=== PATIENT | male | born 1965 | race Caucasian/White ===

== ENCOUNTER 2017-07-09 11:33 | Observation (INO) | payer BC ==
[~2017-07-09 11:33] MED LIST: SODIUM CHLORIDE 0.9% 1,000 ML BAG ONE
[2017-07-09] MEDS ORDERED: SODIUM CHLORIDE 0.9% 1,000 ML BAG ONE (12:31)
--- NOTE | 2017-07-09 12:43 | ED ---
General Adult HPI - General Stated complaint: SOB Time Seen by Provider: 07/09/17 12:12 Source: RN notes reviewed - History of Present Illness Initial comments: Patient is a 52-year-old male who presents to emergency room today with a chief complaint of some chest heaviness with heaviness to the left arm and shoulder. He does admit that this morning he had a very active morning at approximately 7: 30 AM there was a mouse's house and was running around trying to get it. He states that after this he noticed that he was having some heaviness sensation to the left arm and back of his shoulder. He states has not gone away. States it returns taking deep breath he noticed some pain. This does not feel like himself. He denies any other complaints or symptoms at this time. States never had similar symptoms. Patient denies any recent fever, chills, back pain, abdominal pain, nausea or vomiting, numbness or tingling, dysuria or hematuria, constipation or diarrhea, headaches or visual changes, or any other complaints. - Related Data Home Medications Medication Instructions Recorded Confirmed ALPRAZolam [Xanax] 0.5 mg PO TID PRN 07/09/17 07/09/17 Omeprazole [PriLOSEC] 20 mg PO AC-BRKFST 07/09/17 07/09/17 Allergies Allergy/AdvReac Type Severity Reaction Status Date / Time No Known Allergies Allergy Unverified 07/09/17 12:05 Review of Systems ROS Statement: Those systems with pertinent positive or pertinent negative responses have been documented in the HPI. ROS Other: All systems not noted in ROS Statement are negative. General Exam - General Exam Comments Initial Comments: General: The patient is awake and alert, in no distress, and does not appear acutely ill. Eye: Pupils are equal, round and reactive to light, extra-ocular movements are intact. No nystagmus. There is normal conjunctiva bilaterally. No signs of icterus. Ears, nose, mouth and throat: There are moist mucous membranes and no oral lesions. Neck: The neck is supple, there is no tenderness or JVD. Cardiovascular: There is a regular rate and rhythm. No murmur, rub or gallop is appreciated. Respiratory: Lungs are clear to auscultation, respirations are non-labored, breath sounds are equal. No wheezes, stridor, rales, or rhonchi. Gastrointestinal: Soft, non-distended, non-tender abdomen without masses or organomegaly noted. There is no rebound or guarding present. No CVA tenderness. Bowel sounds are unremarkable. Musculoskeletal: Normal ROM, no tenderness. Strength 5/5. Sensation intact. Pulses equal bilaterally 2+. Neurological: A&O x 3. CN II-XII intact, There are no obvious motor or sensory deficits. Coordination appears grossly intact. Speech is normal. Skin: Skin is warm and dry and no rashes or lesions are noted. Psychiatric: Cooperative, appropriate mood & affect, normal judgment. EKG Findings - EKG Comments: EKG Findings:: EKG performed at 1222: A 12-lead EKG was performed and interpreted by me as showing the following: Rate is 70, and rhythm is normal sinus. There are normal QRS complexes and normal R-wave progression. ST segments have no elevation or depression, and NM segments appear normal. Medical Decision Making - Medical Decision Making Patient's labs reviewed. Negative cardiac enzymes. Negative d-dimer. Patient improved after nitro tablet here in the emergency room. Patient will be admitted for repeat cardiac enzymes. Patient aware the plan states understanding. Patient discussed with attending physician Dr. Pereira. - Lab Data Result diagrams: 07/09/17 12:35 07/09/17 12:35 Lab Results 07/09/17 07/09/17 07/09/17 Range/Units 12:35 12:35 12:35 WBC 9.2 (3.8-10.6) k/uL RBC 6.66 H (4.30-5.90) m/uL Hgb 14.9 (13.0-17.5) gm/dL Hct 45.4 (39.0-53.0) % MCV 68.1 L (80.0-100.0) fL MCH 22.3 L (25.0-35.0) pg MCHC 32.8 (31.0-37.0) g/dL RDW 14.6 (11.5-15.5) % Plt Count 220 (150-450) k/uL Neutrophils % 56 % Lymphocytes % 22 % Monocytes % 7 % Eosinophils % 13 % Basophils % 1 % Neutrophils # 5.1 (1.3-7.7) k/uL Lymphocytes # 2.0 (1.0-4.8) k/uL Monocytes # 0.6 (0-1.0) k/uL Eosinophils # 1.2 H (0-0.7) k/uL Basophils # 0.1 (0-0.2) k/uL Microcytosis Marked PT (9.0-12.0) sec INR (<1.2) APTT (22.0-30.0) sec D-Dimer (<0.60) mg/L FEU Sodium 137 (137-145) mmol/L Potassium 4.2 (3.5-5.1) mmol/L Chloride 102 (98-107) mmol/L Carbon Dioxide 26 (22-30) mmol/L Anion Gap 9 mmol/L BUN 13 (9-20) mg/dL Creatinine 0.80 (0.66-1.25) mg/dL Est GFR (MDRD) Af Amer >60 (>60 ml/min/1.73 sqM) Est GFR (MDRD) Non-Af >60 (>60 ml/min/1.73 sqM) Glucose 108 H (74-99) mg/dL Calcium 9.3 (8.4-10.2) mg/dL Magnesium 1.9 (1.6-2.3) mg/dL Total Bilirubin 1.6 H (0.2-1.3) mg/dL GGT 34 (15-73) U/L AST 49 (17-59) U/L ALT 88 H (21-72) U/L Alkaline Phosphatase 70 (38-126) U/L Total Creatine Kinase 205 H (55-170) U/L CK-MB (CK-2) 1.5 (0.0-2.4) ng/mL CK-MB (CK-2) Rel Index 0.7 Troponin I <0.012 (0.000-0.034) ng/mL Total Protein 7.4 (6.3-8.2) g/dL Albumin 4.5 (3.5-5.0) g/dL Amylase 52 (30-110) U/L Lipase 71 (23-300) U/L 07/09/17 Range/Units 12:35 WBC (3.8-10.6) k/uL RBC (4.30-5.90) m/uL Hgb (13.0-17.5) gm/dL Hct (39.0-53.0) % MCV (80.0-100.0) fL MCH (25.0-35.0) pg MCHC (31.0-37.0) g/dL RDW (11.5-15.5) % Plt Count (150-450) k/uL Neutrophils % % Lymphocytes % % Monocytes % % Eosinophils % % Basophils % % Neutrophils # (1.3-7.7) k/uL Lymphocytes # (1.0-4.8) k/uL Monocytes # (0-1.0) k/uL Eosinophils # (0-0.7) k/uL Basophils # (0-0.2) k/uL Microcytosis PT 11.0 (9.0-12.0) sec INR 1.1 (<1.2) APTT 25.6 (22.0-30.0) sec D-Dimer 0.24 (<0.60) mg/L FEU Sodium (137-145) mmol/L Potassium (3.5-5.1) mmol/L Chloride (98-107) mmol/L Carbon Dioxide (22-30) mmol/L Anion Gap mmol/L BUN (9-20) mg/dL Creatinine (0.66-1.25) mg/dL Est GFR (MDRD) Af Amer (>60 ml/min/1.73 sqM) Est GFR (MDRD) Non-Af (>60 ml/min/1.73 sqM) Glucose (74-99) mg/dL Calcium (8.4-10.2) mg/dL Magnesium (1.6-2.3) mg/dL Total Bilirubin (0.2-1.3) mg/dL GGT (15-73) U/L AST (17-59) U/L ALT (21-72) U/L Alkaline Phosphatase (38-126) U/L Total Creatine Kinase (55-170) U/L CK-MB (CK-2) (0.0-2.4) ng/mL CK-MB (CK-2) Rel Index Troponin I (0.000-0.034) ng/mL Total Protein (6.3-8.2) g/dL Albumin (3.5-5.0) g/dL Amylase (30-110) U/L Lipase (23-300) U/L Disposition Clinical Impression: Chest pain Disposition: ADMITTED IP TO THIS HOSP Condition: Stable Referrals: Anusha Reno III, MD [Primary Care Provider] - 1-2 days Time of Disposition: 13:48
[2017-07-09 12:55] LABS: CHCM 32.5; HCT 45.4 % (39.0-53.0); HDW 2.65; HGB 14.9 gm/dL (13.0-17.5); MCH 22.3 pg (25.0-35.0); MCHC 32.8 g/dL (31.0-37.0); MCV 68.1 fL (80.0-100.0); RBC 6.66 m/uL (4.30-5.90); RDW 14.6 % (11.5-15.5); WBC 9.2 k/uL (3.8-10.6); WBC (Perox) 8.58
[2017-07-09 12:56] LABS: Basophils # (A) 0.1 k/uL (0-0.2); Basophils % (A) 1 %; Eosinophils # (A) 1.2 k/uL (0-0.7); Eosinophils % (A) 13 %; Luc # (Auto) 0.16; Luc % (Auto) 2; Lymphocytes % (A) 22 %; Mean Platelet Volume 6.5; Microcytosis Marked; Monocytes # (A) 0.6 k/uL (0-1.0); Monocytes % (A) 7 %; Neutrophils # (A) 5.1 k/uL (1.3-7.7); Neutrophils % (A) 56 %
[2017-07-09 12:57] LABS: ALT 88 U/L (21-72); AST 49 U/L (17-59); Alkaline Phosphatase 70 U/L (38-126); Amylase 52 U/L (30-110); Anion Gap 9 mmol/L; Blood Urea Nitrogen 13 mg/dL (9-20); Calcium 9.3 mg/dL (8.4-10.2); Carbon Dioxide 26 mmol/L (22-30); Chloride 102 mmol/L (98-107); GGT 34 U/L (15-73); Glucose 108 mg/dL (74-99); Magnesium 1.9 mg/dL (1.6-2.3); Non-African American GFR(MDRD) >60 (>60 ml/min/1.73 sqM); Potassium 4.2 mmol/L (3.5-5.1); Sodium 137 mmol/L (137-145); Total Bilirubin 1.6 mg/dL (0.2-1.3); Total Protein 7.4 g/dL (6.3-8.2)
[2017-07-09 13:00] LABS: INR 1.1 (<1.2); Partial Thromboplastin Time 25.6 sec (22.0-30.0)
[2017-07-09 13:14] LABS: Creatine Kinase 205 U/L (55-170)
[2017-07-09 13:28] LABS: Creatine Kinase MB 1.5 ng/mL (0.0-2.4); Troponin I <0.012 ng/mL (0.000-0.034)
[2017-07-09] MEDS ORDERED: HEPARIN SODIUM,PORCINE 5,000 UNIT/ML 1 ML VIAL IV ONE (13:48)
[2017-07-09] MEDS ORDERED: SODIUM CHLORIDE 0.9% 1,000 ML IV ONE (13:48)
[2017-07-09] MEDS ORDERED: NITROGLYCERIN SL TABS 0.4 MG TAB SUBLINGUAL PRN (13:48)
[2017-07-09] MEDS ORDERED: HEPARIN SODIUM,PORCINE/D5W PMX 25,000 UNIT in DEXTROSE/WATER 1 500ML.BAG IV SCH (14:00)
--- NOTE | 2017-07-09 14:27 | XR ---
EXAMINATION TYPE: TEMPORARY DATE OF EXAM: 07/09/2017 COMPARISON: NONE TECHNIQUE: PA and lateral views submitted. HISTORY: 10/25/2012 FINDINGS: The lungs are clear and there is no pneumothorax, pleural effusion, or focal pneumonia. Surgical cl ips in the right upper quadrant. Biapical pleural thickening. No overt failure. IMPRESSION: 1. No acute process.
[2017-07-09] MEDS ORDERED: ALPRAZolam 0.5 MG TAB PO PRN (16:01)
[2017-07-09 20:03] LABS: Creatine Kinase 166 U/L (55-170)
[2017-07-09 20:15] LABS: Creatine Kinase MB 1.2 ng/mL (0.0-2.4); Troponin I <0.012 ng/mL (0.000-0.034)
[2017-07-10 01:31] LABS: Creatine Kinase 161 U/L (55-170)
[2017-07-10 01:44] LABS: Creatine Kinase MB 1.1 ng/mL (0.0-2.4); Troponin I <0.012 ng/mL (0.000-0.034)
[2017-07-10 07:03] LABS: Anisocytosis Slight; Basophils # (A) 0.1 k/uL (0-0.2); Basophils % (A) 1 %; CH 22.7; CHCM 33.1; Eosinophils # (A) 1.8 k/uL (0-0.7); Eosinophils % (A) 18 %; HCT 47.6 % (39.0-53.0); HDW 2.79; HGB 15.3 gm/dL (13.0-17.5); Luc % (Auto) 3; Lymphocytes # (A) 3.4 k/uL (1.0-4.8); Lymphocytes % (A) 33 %; MCH 22.1 pg (25.0-35.0); MCHC 32.1 g/dL (31.0-37.0); Mean Platelet Volume 6.9; Microcytosis Marked; Monocytes # (A) 0.7 k/uL (0-1.0); Monocytes % (A) 7 %; Neutrophils # (A) 4.1 k/uL (1.3-7.7); Neutrophils % (A) 40 %; RDW 16.7 % (11.5-15.5); WBC 10.4 k/uL (3.8-10.6); WBC (Perox) 10.41
[2017-07-10 07:40] LABS: Anion Gap 9 mmol/L; Blood Urea Nitrogen 11 mg/dL (9-20); Calcium 8.9 mg/dL (8.4-10.2); Carbon Dioxide 29 mmol/L (22-30); Chloride 101 mmol/L (98-107); Cholesterol 150 mg/dL (<200); Glucose 88 mg/dL (74-99); HDL Cholesterol 35 mg/dL (40-60); Non-African American GFR(MDRD) >60 (>60 ml/min/1.73 sqM); Potassium 3.9 mmol/L (3.5-5.1); Sodium 139 mmol/L (137-145)
[2017-07-10] MEDS: ASPIRIN 325 MG TAB PO SCH (10:17)
[2017-07-10] MEDS: PANTOPRAZOLE 40 MG TABLET PO SCH (10:17)
[2017-07-10] MEDS ORDERED: ALPRAZolam 0.25 MG TAB PO PRN (10:35)
[2017-07-10] MEDS ORDERED: ASPIRIN 325 MG TAB PO STA (10:35)
[2017-07-10] MEDS ORDERED: NITROGLYCERIN SL TABS 0.4 MG TAB SUBLINGUAL PRN (10:35)
[2017-07-10] MEDS ORDERED: ALPRAZolam 0.5 MG TAB PO PRN (10:35)
[2017-07-10] MEDS ORDERED: SODIUM CHLORIDE 0.9% 1,000 ML in EMPTY BAG 1 BAG IV ONE (10:35)
[2017-07-10] MEDS ORDERED: ATORVASTATIN 80 MG TAB PO STA (10:35)
--- NOTE | 2017-07-10 11:27 | CONS ---
CONSULTATION A 52-year-old gentleman with a known history of borderline hypertension, anxiety, atypical chest pain who was seen by me 2 years ago and had a negative stress echo. Sees Dr. Reno on a regular basis. Was doing well until yesterday when he started chasing a mouse in the house and after he chased the mouse and caught it, he started having some tightness in the chest. The pain and the quality of his discomfort in the chest seems quite atypical. This resolved completely. He is resting without symptoms. His blood pressure is good. He has not had any troponin elevation. He is asymptomatic. However, there is an element of anxiety. He feels concerned because he also had some shortness of breath and broke into a mild sweat at that time. He is asymptomatic, his blood pressure control is optimal. Apparently since his last visit with me 2 years ago. He has been exercising regularly and modifying his lifestyle. He is asymptomatic at the time of my evaluation. PAST MEDICAL HISTORY: 1. Borderline hypertension, resolved with lifestyle changes. 2. Atypical chest pain. Negative stress echo about 2 years ago. 3. No evidence of any diabetes or myocardial infarction. MEDICATIONS: At home include omeprazole and Xanax. He does have an element of anxiety. ALLERGIES: None. REVIEW OF SYSTEMS: Remarkable with some exertional shortness of breath. He has no hematemesis or melena, genitourinary symptoms, fever with chills or cough or expectoration. PHYSICAL EXAMINATION: Blood pressure is 118/70, pulse rate is 68 per minute, regular. HEENT unremarkable. Fundus was not examined by me. Neck is supple. No JVD. I do not hear a carotid bruit. There is no thyromegaly. Heart exam reveals S1, S2 heard normally in all areas without a rub, murmur or gallop. Lungs are clear. Abdomen is soft, nontender. Lower extremities reveal normal pulses. No edema. Central nervous system is normal. EKG revealed a sinus mechanism. No acute changes. Borderline voltage criteria for LVH. This patient is status post cholecystectomy and arthroscopic surgery of his knee. IMPRESSION: 1. Atypical chest pain. 2. Anxiety. 3. Borderline hypertension. RECOMMENDATIONS: I will perform a regular stress test for this patient. Discontinue heparin, increase activity and if the regular stress test is normal, he can be discharged. I discussed my thoughts in detail with the patient. Thank you very much for the consult. MMODL / IJN: [id number] /
[2017-07-10] MEDS ORDERED: IV FLUID CONTINUATION 950 ML IV ONE (12:15)
[2017-07-10] MEDS ORDERED: VERAPAMIL 2.5 MG/ML 2 ML AMP ONE (12:18)
[2017-07-10] MEDS ORDERED: MIDAZOLAM 2 MG/2 ML VIAL ONE (12:18)
[2017-07-10] MEDS ORDERED: diphenhydrAMINE 50 MG/ML 1 ML VIAL ONE (12:26)
[2017-07-10] MEDS ORDERED: diphenhydrAMINE 50 MG/ML 1 ML VIAL IVP ONE (12:28)
[2017-07-10] MEDS ORDERED: MIDAZOLAM 2 MG/2 ML VIAL IVP ONE (12:28)
[2017-07-10] MEDS: LIDOCAINE 2% INJ 20 MG/ML SQ ONE ×2 (12:30→12:48)
[2017-07-10] MEDS: VERAPAMIL SYRINGE (5 MG/10 ML) INTRAARTER ONE ×2 (12:34→13:06)
[2017-07-10] MEDS ORDERED: HEPARIN SODIUM 1,000 UN/ML (10ML VL) IV ONE (12:36)
[2017-07-10] MEDS ORDERED: IOHEXOL 350 MG/ML (PER ML) 100ML BTL INJ ONE (13:06)
[2017-07-10] MEDS ORDERED: RX INFO: IV CONTRAST WAS GIVEN 1 EACH MISC MISCELLANE PRN (13:20)
[2017-07-10] MEDS ORDERED: SODIUM CHLORIDE 0.9% 1,000 ML IV SCH ×2 (13:30→18:45)
[2017-07-10] MEDS ORDERED: LOSARTAN 50 MG TAB PO SCH (14:00)
--- NOTE | 2017-07-10 14:34 | EST ---
EXERCISE STRESS AGE: 52 SEX: M HT: 70" WT: 224 PROTOCOL: Daniel Stress Exercise Test STAGE: IV DURATION OF EXERCISE: 11:00 HEART RATE REST: 68 BLOOD PRESSURE REST: 153/88 MAXIMUM HEART RATE ACHIEVED: 150 MAXIMUM BLOOD PRESSURE: 198/70 85% MPHR: 145 100% MPHR: 170 METS: 12.1 INDICATIONS: Chest pain. CLINICAL INFORMATION: Baseline EKG revealed normal sinus rhythm, with minor inferolateral nonspecific ST abnormality. Patient walked on a standard Daniel protocol for 11 minutes, achieved a maximal heart rate of 150 beats per minute which is more than 85% of predicted maximal. His maximal blood pressure was 198/70, he developed fatigue and shortness of breath but did not have angina. At peak exercise, ST-segment changes were much more prominent in making this a positive stress test by EKG criteria. However, patient has underlying hypertension and this could be related to hypertension as well. However, following the exercise, he developed extreme diaphoresis and had felt totally exhausted but did not complain of chest discomfort and his blood pressure came down rather quickly. EKG changes suggest myocardial ischemia at a fairly high exercise level. By EKG criteria, this is a positive stress test with good exercise capacity and significant diaphoresis after the stress test. In view of the abnormal stress test, I discussed with him the findings and advised coronary angiography. The rationale, risks, benefits, and options were explained to the patient and and I proceeded to perform coronary angiography in the same day. KADEN / SARAHI: [id number] /
--- NOTE | 2017-07-10 15:24 | P.DS ---
Providers Date of admission: 07/09/17 13:52 Attending physician: Bert Khan Consults: 07/09/17 13:48 Consult Physician Stat Consulting Provider: [facility] Consult Reason/Comments: chest pain Do you want consulting provider notified?: Yes Primary care physician: Anusha Reno [facility] Course: Please refer to HPI Patient Condition at Discharge: Stable Plan - Discharge Summary New Discharge Prescriptions: New Losartan [Cozaar] 50 mg PO DAILY #0 tab Continue ALPRAZolam [Xanax] 0.5 mg PO TID PRN PRN Reason: Anxiety Omeprazole [PriLOSEC] 20 mg PO AC-BRKFST Discharge Medication List ALPRAZolam [Xanax] 0.5 mg PO TID PRN 07/09/17 [History] Omeprazole [PriLOSEC] 20 mg PO AC-BRKFST 07/09/17 [History] Losartan [Cozaar] 50 mg PO DAILY #0 tab 07/10/17 [Rx] Follow up Appointment(s)/Referral(s): Aaron Kang MD [STAFF PHYSICIAN] - 07/16/17 8:45 am Anusha Reno III, MD [Primary Care Provider] - 1-2 days
--- NOTE | 2017-07-10 15:24 | P.HPIM ---
History of Present Illness Patient is a 52-year-old male came in with a chief complaint of some chest heaviness with heaviness to the left arm and shoulder. Patient chest pain is heaviness in the chest patient underwent the stress test which was suspicious for inducible ischemia for which patient underwent cardiac catheterization which did not show any significant coronary occlusion patient chest pain is not related to food, nonpleuritic in nature patient doesn't have any pneumonia patient denied any cough patient probably has musculoskeletal chest pain which resolved at this point of time patient chest pain lasted only for few minutes. Review of Systems REVIEW OF SYSTEMS: CONSTITUTIONAL: No fever, no malaise, no fatigue. HEENT: No recent visual problems or hearing problems. Denied any sore throat. CARDIOVASCULAR: No orthopnea, PND, no palpitations, no syncope. PULMONARY: No shortness of breath, no cough, no hemoptysis. GASTROINTESTINAL: No diarrhea, no nausea, no vomiting, no abdominal pain. Normoactive bowel sounds. NEUROLOGICAL: No headaches, no weakness, no numbness. HEMATOLOGICAL: Denies any bleeding or petechiae. GENITOURINARY: Denies any burning micturition, frequency, or urgency. MUSCULOSKELETAL/RHEUMATOLOGICAL: Denies any joint pain, swelling, or any muscle pain. ENDOCRINE: Denies any polyuria or polydipsia. The rest of the 14-point review of systems is negative. Past Medical History Additional Past Medical History / Comment(s): concussion age 19, took shots for asthma in past, pt had an egd in past "told he may have had sighns of an ulcer in past", anxiety takes xanax. History of Any Multi-Drug Resistant Organisms: None Reported Past Surgical History: Adenoidectomy, Cholecystectomy, Orthopedic Surgery, Tonsillectomy Additional Past Surgical History / Comment(s): egg, colonoscopy/polypectomy- benign.lt knee arthroscopy and repair of ligament. had a 2nd sx for meniscus repair. deviated septum repair. Past Anesthesia/Blood Transfusion Reactions: No Reported Reaction Smoking Status: Never smoker - Past Family History Father Family Medical History: Liver Disease Additional Family Medical History / Comment(s): non alcoholic cirrhosis Mother Family Medical History: Asthma Additional Family Medical History / Comment(s): chronic bronchitis Son(s) Family Medical History: Cancer Additional Family Medical History / Comment(s): osteosarcoma Medications and Allergies Home Medications Medication Instructions Recorded Confirmed Type ALPRAZolam [Xanax] 0.5 mg PO TID PRN 07/09/17 07/09/17 History Omeprazole [PriLOSEC] 20 mg PO AC-BRKFST 07/09/17 07/09/17 History Losartan [Cozaar] 50 mg PO DAILY #0 tab 07/10/17 Rx Allergies Allergy/AdvReac Type Severity Reaction Status Date / Time No Known Allergies Allergy Unverified 07/09/17 12:05 Physical Exam Vitals: Vital Signs Temp Pulse Pulse Resp BP BP Pulse Ox 07/10/17 13:25 97.8 F 74 16 128/71 94 L 07/10/17 11:30 98.1 F 86 18 122/79 95 07/10/17 08:00 61 18 07/10/17 07:35 97.5 F L 61 18 112/74 94 L 07/10/17 03:44 98.5 F 72 16 136/88 96 07/10/17 03:02 61 16 07/09/17 23:24 98.1 F 77 16 118/77 94 L 07/09/17 23:19 73 16 07/09/17 20:00 98.1 F 83 16 143/76 96 Intake and Output 07/10/17 07/10/17 07/10/17 06:59 14:59 22:59 Intake Total 150 Balance 150 Intake: IV 150 Other: Voiding Method Toilet Weight 101.605 kg Patient Weight 07/11/17 06:59 Weight 101.605 kg PHYSICAL EXAMINATION: GENERAL: The patient is alert and oriented x3, not in any acute distress. Well developed, well nourished. HEENT: Pupils are round and equally reacting to light. EOMI. No scleral icterus. No conjunctival pallor. Normocephalic, atraumatic. No pharyngeal erythema. No thyromegaly. CARDIOVASCULAR: S1 and S2 present. No murmurs, rubs, or gallops. PULMONARY: Chest is clear to auscultation, no wheezing or crackles. ABDOMEN: Soft, nontender, nondistended, normoactive bowel sounds. No palpable organomegaly. MUSCULOSKELETAL: No joint swelling or deformity. EXTREMITIES: No cyanosis, clubbing, or pedal edema. NEUROLOGICAL: Gross neurological examination did not reveal any focal deficits. SKIN: No rashes. Results CBC & Chem 7: 07/10/17 06:31 07/10/17 06:31 Labs: Abnormal Lab Results - Last 24 Hours (Table) 07/09/17 07/10/17 07/10/17 Range/Units 19:29 00:55 06:31 RBC (4.30-5.90) m/uL MCV (80.0-100.0) fL MCH (25.0-35.0) pg RDW (11.5-15.5) % Eosinophils # (0-0.7) k/uL APTT 39.6 H 51.8 H (22.0-30.0) sec HDL Cholesterol 35 L (40-60) mg/dL 07/10/17 Range/Units 06:31 RBC 6.90 H (4.30-5.90) m/uL MCV 69.0 L (80.0-100.0) fL MCH 22.1 L (25.0-35.0) pg RDW 16.7 H (11.5-15.5) % Eosinophils # 1.8 H (0-0.7) k/uL APTT (22.0-30.0) sec HDL Cholesterol (40-60) mg/dL Thrombosis Risk Factor Assmnt - Choose All That Apply Any of the Below Risk Factors Present?: Yes Each Factor Represents 1 point: Age 41-60 years, Obesity (BMI >25) Other Risk Factors: No Other congenital or acquired thrombophilia - If yes, enter type in comment: No Thrombosis Risk Factor Assessment Total Risk Factor Score: 2 Thrombosis Risk Factor Assessment Level: Low Risk Assessment and Plan Plan: #1 chest pain: Rule out acute coronary syndromes, patient is status post cardiac catheterization which showed clean coronaries. Chest pain is probably musculoskeletal in nature. #2 gastroesophageal reflux disease history for which patient takes Prilosec which will be continued #3 hypertension continue with losartan at home. Patient will be discharged today
[2017-07-10 16:44] LABS: Glucose,Whole Blood 104 mg/dL (75-99)
[2017-07-10 17:22] LABS: Basophils # (A) 0.1 k/uL (0-0.2); Basophils % (A) 1 %; CH 21.8; CHCM 32.1; Eosinophils # (A) 0.8 k/uL (0-0.7); Eosinophils % (A) 9 %; HCT 45.1 % (39.0-53.0); HDW 2.64; HGB 14.8 gm/dL (13.0-17.5); Luc # (Auto) 0.15; Luc % (Auto) 2; Lymphocytes # (A) 1.7 k/uL (1.0-4.8); Lymphocytes % (A) 18 %; MCH 22.3 pg (25.0-35.0); MCHC 32.7 g/dL (31.0-37.0); MCV 68.3 fL (80.0-100.0); Mean Platelet Volume 6.3; Microcytosis Marked; Monocytes # (A) 0.6 k/uL (0-1.0); Monocytes % (A) 6 %; Neutrophils # (A) 6.3 k/uL (1.3-7.7); Neutrophils % (A) 65 %; RBC 6.61 m/uL (4.30-5.90); RDW 14.8 % (11.5-15.5); WBC 9.6 k/uL (3.8-10.6)
[2017-07-10] MEDS ORDERED: MELATONIN 5 MG TABLET PO PRN (20:52)
[2017-07-10] MEDS ORDERED: ACETAMINOPHEN TAB 325 MG TAB PO PRN (20:52)
--- NOTE | 2017-07-10 22:10 | PN ---
PROGRESS NOTE Mr. Ramon, following the cardiac cath, developed an episode of vasovagal reaction, developed diaphoresis, hypotension. Pressure was in the 70s. I gave him IV fluids and he was placed in the Trendelenburg position. With this, he improved remarkably. I came in and saw the patient in the evening. His hemoglobin was normal. There was no evidence of any bleeding. He stabilized very quickly. Probably manipulation of the ( ) in the right radial cath site or some groin manipulation seemed to have caused some pain and precipitated the vasovagal reaction. Patient received 50 mg of losartan as well. However, he has stabilized and is doing well. I came in and saw both the patient and his . Blood pressure was 110/70, pulse rate about 70 per minute. S1,S2 heard normally. Lungs are clear. Abdomen and lower extremity exam was unchanged. I reassured the patient, but we will keep him overnight, continue to hydrate him gradually, and I will see him in the morning prior to discharge. Discussed my thoughts in detail with the patient. MMODL / IJN: [id number] /
--- NOTE | 2017-07-11 00:01 | CC ---
CARDIAC CATHETERIZATION REPORT DATE OF SERVICE: 07/10/2017 PROCEDURE: Left heart catheterization, coronary angiography and left ventriculography. PERFORMED BY: Dr. Manolo Kang. CLINICAL INFORMATION: Mr. Addison Ramon is a 52-year-old gentleman with a history of borderline hypertension. He came into the hospital with an episode of chest tightness, pressure and normal troponin. He walked on a standard Daniel protocol for about 11 minutes but developed inferolateral ST-segment depression, then had a significant episode of diaphoresis and hypotension. The EKG changes became more pronounced. The patient was advised to have coronary angiography, given the positive stress test at a high exercise level with symptoms of diaphoresis and generalized weakness and relative hypotension. Risks, benefits and options were explained to the patient, and procedure was performed on the same day. PROCEDURE NOTE: Under local anesthesia and strict aseptic precautions, a 6 Pakistani introducer was placed in the right radial artery. I advanced a Glidewire and Ultimate 1 catheter. With this I noted that there was extreme tortuosity with almost a U-shaped curve from the subclavian and the aortic arch to gain access into the ascending aorta. Because of extreme tortuosity, I felt it would not be prudent to pursue the cath, and therefore I switched over to the right femoral approach. Using standard Mitchell catheters from the right femoral approach, a 6 Pakistani introducer was placed. Using standard Mitchell catheters, I performed coronary angiography. I used a pigtail catheter to perform LV gram after checking the LV pressures. The patient tolerated the procedure well without complication. The femoral arterial sheath was taken out and an Angio-Seal device used to secure hemostasis. The right radial catheterization site was addressed by applying a tracelet, and good hemostasis was secured. Saturation of the fingers of the right hand was 95%. The right groin hemostasis was secure. The right radial site hemostasis was secure. Patient tolerated the procedure well without complication. Findings were reviewed with the patient and his . He was sent to the room in stable condition. CARDIAC CATHETERIZATION FINDINGS: The left ventricular end-diastolic pressure was about 10 mmHg, and there was no gradient across the aortic valve. CORONARY ANGIOGRAPHY FINDINGS: RIGHT CORONARY ARTERY: Technically dominant vessel. Has no significant disease. Minor irregularities. Distally bifurcates into PDA and PLV. PLV is large and PDA is small, has minor irregularities. No significant disease in the dominant RCA. LEFT MAIN CORONARY ARTERY: Long patent vessel has some ostial narrowing of the left main of about maybe 10% also; however, there is no significant disease, and the left main bifurcates into LAD and circumflex. LEFT ANTERIOR DESCENDING CORONARY ARTERY: Good-caliber vessel. Extends along the anterior wall, gives off 2 good-sized diagonal branches, then a septal branch, and then runs towards the apex, and in the midportion gives off another diagonal branch. The LAD and the diagonals are free of significant disease. LEFT POSTERIOR CIRCUMFLEX CORONARY ARTERY: Nondominant vessel. Fair caliber. Fair distribution. Minor irregularities. No significant disease. LEFT VENTRICULOGRAM: This was performed in 30-degree LAWRENCE projection and revealed that the left ventricle is of normal size with good systolic function without segmental wall motion abnormality. Ejection fraction 60% by visual inspection. FINAL IMPRESSION: This patient has no significant obstructive coronary artery disease. He has a right- dominant system, normal filling pressures and normal systolic function. Findings were discussed with the patient and his . RECOMMENDATIONS: Aggressive medical therapy with risk factor modification, including lipid-lowering agents and also a small dose of antihypertensive was advised. Patient will be discharged later on today or tomorrow if he remains stable. Moderate conscious sedation was provided for a total duration of 45 minutes. MMODL / IJN: [id number] /
--- NOTE | 2017-07-11 07:46 | CONS ---
CONSULTATION Mr. Ramon is a gentleman who had a vasovagal episode yesterday. He is doing remarkably well. Has no further symptoms. Blood pressure is good. There are no orthostatic changes. His blood pressure is 130/70, pulse rate 70 per minute. S1 and S2 heard normally. Lungs are clear. Abdomen and lower extremity exam unchanged. The right radial cath site and the right femoral cath site are clean and dry. Plan is to increase activity, discharge him and I will see him in the office next Saturday. Discharge instructions were given and not to do any strenuous activity but he can resume walking after 48 hours. MMODL / IJN: [id number] /
[2017-07-11] MEDS: PANTOPRAZOLE 40 MG TABLET PO SCH (08:09)
[2017-07-11] MEDS: ASPIRIN 325 MG TAB PO SCH (08:09)
[2017-07-11 11:47] VITALS: BP 120/67; PULSE 78; RESP 16; TEMP 98.1
--- NOTE | 2017-07-11 13:45 | P.DS ---
Providers Date of admission: 07/09/17 13:52 Attending physician: Bert Khan Consults: 07/09/17 13:48 Consult Physician Stat Consulting Provider: [facility] Consult Reason/Comments: chest pain Do you want consulting provider notified?: Yes Primary care physician: Anusha Reno [facility] Course: Patient was admitted for chest pain and underwent cardia catheterization which did not show any significant coronary atherosclerotic vascular disease is being discharged today. Patient Condition at Discharge: Stable Plan - Discharge Summary New Discharge Prescriptions: Continue ALPRAZolam [Xanax] 0.5 mg PO TID PRN PRN Reason: Anxiety Omeprazole [PriLOSEC] 20 mg PO AC-BRKFST Discharge Medication List ALPRAZolam [Xanax] 0.5 mg PO TID PRN 07/09/17 [History] Omeprazole [PriLOSEC] 20 mg PO AC-BRKFST 07/09/17 [History] Follow up Appointment(s)/Referral(s): Aaron Kang MD [STAFF PHYSICIAN] - 07/16/17 8:45 am Anusha Reno III, MD [Primary Care Provider] - 1-2 days Patient Instructions/Handouts: Chest Pain (DC) Activity/Diet/Wound Care/Special Instructions: See Restriction Sheet
== END 2017-07-11 13:39 | disposition home or self-care (01) ==
LOC: EC 11:33 → 3OBS 13:52
PROVIDERS: ADMIT Hospitalist; ATTEND Hospitalist
DX: R07.89 Other chest pain (principal); Z79.899 Other long term (current) drug therapy; K21.9 Gastro-esophageal reflux disease without esophagitis; I10 Essential (primary) hypertension; J45.909 Unspecified asthma, uncomplicated; F41.9 Anxiety disorder, unspecified; Z90.49 Acquired absence of other specified parts of digestive tract; Z82.5 Family history of asthma and other chronic lower respiratory diseases; E66.9 Obesity, unspecified; Z68.32 Body mass index [BMI] 32.0-32.9, adult; R55 Syncope and collapse; R61 Generalized hyperhidrosis; I95.9 Hypotension, unspecified
CPT/HCPCS: 99152; 99153; 96361; 96366 ×2; 96365; 99285; 36415; 93005; 93017; 93458; 85379; 80061; 80053; 80048; 82150; 82550 ×2; 82553 ×2; 82977; 83690; 83735; 84484 ×2; 85025 ×2; 85610; 85730 ×2; 71020; G0378 ×3; C1760; C1769 ×5; C1894 ×2; J2001; J2250; J1200; Q9967; J1644 ×2

== ENCOUNTER → 2019-07-30 | Outpatient (CLI) | payer BC ==
--- NOTE | 2019-07-30 07:47 | US ---
EXAMINATION TYPE: US abdomen complete DATE OF EXAM: 07/30/2019 COMPARISON: None CLINICAL HISTORY: R10.9 unspecified abdominal pain. Epigastric pain, gassy and bloating EXAM MEASUREMENTS: Liver Length: 15.5 cm Gallbladder Wall: Surgically absent CBD: 0.5 cm Spleen: 14.9 cm Right Kidney: 12.4 x 6.3 x 6.1 cm Left Kidney: 12.8 x 4.8 x 7.1 cm Technically difficult study due to extensive midline bowel gas. Pancreas: Obscured by bowel gas Liver: difficult to penetrate, loss of vascular landmarks. Echogenic as compared to kidney. These fi ndings most commonly related to hepatic steatosis and limiting evaluation for hepatic masses. Gallbladder: Surgically absent CBD: wnl Spleen: measures 14.9 cm Right Kidney: No hydronephrosis or masses seen Left Kidney: No hydronephrosis or masses seen Upper IVC: not seen Abd Aorta: not seen proximally, otherwise wnl. The intrahepatic portion of the IVC and proximal abdominal aorta are within normal limits. Common devonte e duct is unremarkable. The visualized portions of the pancreas are homogenous. The spleen is unrem arkable. Kidneys are symmetric and free of hydronephrosis. No renal lesions are seen. IMPRESSION: 1. Sonographic findings most commonly related to hepatic steatosis. This appears overall moderate in degree. Correlate with liver function tests. Liver is severely limited for evaluation of masses. 2. Incidentally noted splenomegaly. 3. Obscuration of the pancreas by overlying bowel gas.
== END | disposition home or self-care (01) ==
LOC: RADUSWWP 06:50
PROVIDERS: ATTEND Family Medicine
DX: R10.9 Unspecified abdominal pain (principal); R19.00 Intra-abdominal and pelvic swelling, mass and lump, unspecified site
CPT/HCPCS: 76700

== ENCOUNTER 2019-11-13 05:51 | Observation (INO) | payer BC ==
[2019-11-13] MEDS ORDERED: ASPIRIN 81 MG PO STA (06:19)
[2019-11-13] MEDS ORDERED: KETOROLAC 30 MG/ML 1 ML VIAL IVP STA (06:49)
--- NOTE | 2019-11-13 07:01 | ED ---
General Adult HPI - General Chief complaint: Shortness of Breath Stated complaint: Diff Breathing Time Seen by Provider: 11/13/19 06:00 Source: patient, RN notes reviewed Mode of arrival: ambulatory Limitations: no limitations - History of Present Illness Initial comments: This a 54-year-old male presents emergency Department chief complaint of shortness of breath, left shoulder pain. Patient states that he woke up states that he felt very winded states that he cannot walk up stairs. Patient states he has had some pain in his left posterior shoulder region left arm, left upper chest tightness. Patient does admit that he had an episode similar to this a few weeks ago. He is mentally child a lot but has no history of PE or DVT. No significant cardiac history states that he had cardiac cath 3 years ago with no significant findings. Patient denies any current nausea vomiting no recent URI symptoms. - Related Data Home Medications Medication Instructions Recorded Confirmed ALPRAZolam [Xanax] 0.25 mg PO Q8HR PRN 11/13/19 11/13/19 Aspirin EC [Ecotrin Low Dose] 81 mg PO DAILY 11/13/19 11/13/19 L.acidoph,Paracasei, B.lactis 1 cap PO DAILY 11/13/19 11/13/19 [Probiotic] Multivitamins, Thera [Multivitamin 1 tab PO DAILY 11/13/19 11/13/19 (formulary)] Omeprazole Magnesium [PriLOSEC OTC] 20 mg PO DAILY 11/13/19 11/13/19 Allergies Allergy/AdvReac Type Severity Reaction Status Date / Time No Known Allergies Allergy Verified 11/13/19 07:34 Review of Systems ROS Statement: Those systems with pertinent positive or pertinent negative responses have been documented in the HPI. ROS Other: All systems not noted in ROS Statement are negative. Past Medical History Additional Past Medical History / Comment(s): concussion age 19, took shots for asthma in past, pt had an egd in past "told he may have had sighns of an ulcer in past", anxiety takes xanax. History of Any Multi-Drug Resistant Organisms: None Reported Past Surgical History: Adenoidectomy, Cholecystectomy, Orthopedic Surgery, Tonsillectomy Additional Past Surgical History / Comment(s): egg, colonoscopy/polypectomy- benign.lt knee arthroscopy and repair of ligament. had a 2nd sx for meniscus repair. deviated septum repair. Past Anesthesia/Blood Transfusion Reactions: No Reported Reaction Past Psychological History: Anxiety Smoking Status: Never smoker Past Alcohol Use History: Occasional Past Drug Use History: None Reported - Past Family History Father Family Medical History: Liver Disease Additional Family Medical History / Comment(s): non alcoholic cirrhosis Mother Family Medical History: Asthma Additional Family Medical History / Comment(s): chronic bronchitis Son(s) Family Medical History: Cancer Additional Family Medical History / Comment(s): osteosarcoma General Exam Limitations: no limitations General appearance: alert, in no apparent distress Head exam: Present: atraumatic, normocephalic, normal inspection Eye exam: Present: normal appearance, PERRL, EOMI. Absent: scleral icterus, conjunctival injection, periorbital swelling ENT exam: Present: normal exam, normal oropharynx, mucous membranes moist Neck exam: Present: normal inspection, full ROM. Absent: tenderness, meningismus, lymphadenopathy Respiratory exam: Present: normal lung sounds bilaterally. Absent: respiratory distress, wheezes, rales, rhonchi, stridor Cardiovascular Exam: Present: regular rate, normal rhythm, normal heart sounds. Absent: systolic murmur, diastolic murmur, rubs, gallop, clicks GI/Abdominal exam: Present: soft, normal bowel sounds. Absent: distended, tenderness, guarding, rebound, rigid Extremities exam: Present: other (Extremity pulses equal bilaterally +2). Absent: pedal edema, calf tenderness Neurological exam: Present: alert, oriented X3, CN II-XII intact Skin exam: Present: warm, dry, intact, normal color. Absent: rash Course Vital Signs 11/13/19 11/13/19 05:56 07:30 Temperature 98.1 F Pulse Rate 85 78 Respiratory 18 16 Rate Blood Pressure 148/89 121/74 O2 Sat by Pulse 99 99 Oximetry EKG Findings - EKG Comments: EKG Findings:: EKG 4 to 03/31/1942 normal sinus rhythm rate of 80 VT 158 QRS 86 QTC is QTC 382/440 Medical Decision Making - Medical Decision Making Patient will be admitted for exertional dyspnea, chest pain at this time workup initially is negative. Patient will be consult to cardiology. - Lab Data Result diagrams: 11/13/19 06:50 11/13/19 06:50 Lab Results 01/11/13/19 11/13/19 Range/Units 06:50 06:50 06:50 WBC 10.7 H (3.8-10.6) k/uL RBC 6.89 H (4.30-5.90) m/uL Hgb 15.1 (13.0-17.5) gm/dL Hct 47.1 (39.0-53.0) % MCV 68.3 L (80.0-100.0) fL MCH 22.0 L (25.0-35.0) pg MCHC 32.2 (31.0-37.0) g/dL RDW 14.7 (11.5-15.5) % Plt Count 201 (150-450) k/uL Neutrophils % (Manual) 48 % Lymphocytes % (Manual) 28 % Monocytes % (Manual) 7 % Eosinophils % (Manual) 17 % Neutrophils # (Manual) 5.14 (1.3-7.7) k/uL Lymphocytes # (Manual) 3.00 (1.0-4.8) k/uL Monocytes # (Manual) 0.75 (0-1.0) k/uL Eosinophils # (Manual) 1.82 H (0-0.7) k/uL Nucleated RBCs 0 (0-0) /100 WBC Manual Slide Review Performed Microcytosis Marked PT 10.4 (9.0-12.0) sec INR 1.0 (<1.2) APTT 25.8 (22.0-30.0) sec D-Dimer 0.19 (<0.60) mg/L FEU Sodium 140 (137-145) mmol/L Potassium 4.1 (3.5-5.1) mmol/L Chloride 103 (98-107) mmol/L Carbon Dioxide 26 (22-30) mmol/L Anion Gap 11 mmol/L BUN 14 (9-20) mg/dL Creatinine 0.84 (0.66-1.25) mg/dL Est GFR (CKD-EPI)AfAm >90 (>60 ml/min/1.73 sqM) Est GFR (CKD-EPI)NonAf >90 (>60 ml/min/1.73 sqM) Glucose 111 H (74-99) mg/dL Calcium 9.5 (8.4-10.2) mg/dL Magnesium 1.9 (1.6-2.3) mg/dL Total Bilirubin 1.6 H (0.2-1.3) mg/dL AST 48 (17-59) U/L ALT 78 H (4-49) U/L Alkaline Phosphatase 75 (38-126) U/L Troponin I (0.000-0.034) ng/mL NT-Pro-B Natriuret Pep pg/mL Total Protein 7.8 (6.3-8.2) g/dL Albumin 4.5 (3.5-5.0) g/dL Lipase 137 (23-300) U/L 11/13/19 11/13/19 Range/Units 06:50 06:50 WBC (3.8-10.6) k/uL RBC (4.30-5.90) m/uL Hgb (13.0-17.5) gm/dL Hct (39.0-53.0) % MCV (80.0-100.0) fL MCH (25.0-35.0) pg MCHC (31.0-37.0) g/dL RDW (11.5-15.5) % Plt Count (150-450) k/uL Neutrophils % (Manual) % Lymphocytes % (Manual) % Monocytes % (Manual) % Eosinophils % (Manual) % Neutrophils # (Manual) (1.3-7.7) k/uL Lymphocytes # (Manual) (1.0-4.8) k/uL Monocytes # (Manual) (0-1.0) k/uL Eosinophils # (Manual) (0-0.7) k/uL Nucleated RBCs (0-0) /100 WBC Manual Slide Review Microcytosis PT (9.0-12.0) sec INR (<1.2) APTT (22.0-30.0) sec D-Dimer (<0.60) mg/L FEU Sodium (137-145) mmol/L Potassium (3.5-5.1) mmol/L Chloride (98-107) mmol/L Carbon Dioxide (22-30) mmol/L Anion Gap mmol/L BUN (9-20) mg/dL Creatinine (0.66-1.25) mg/dL Est GFR (CKD-EPI)AfAm (>60 ml/min/1.73 sqM) Est GFR (CKD-EPI)NonAf (>60 ml/min/1.73 sqM) Glucose (74-99) mg/dL Calcium (8.4-10.2) mg/dL Magnesium (1.6-2.3) mg/dL Total Bilirubin (0.2-1.3) mg/dL AST (17-59) U/L ALT (4-49) U/L Alkaline Phosphatase (38-126) U/L Troponin I <0.012 (0.000-0.034) ng/mL NT-Pro-B Natriuret Pep 23 pg/mL Total Protein (6.3-8.2) g/dL Albumin (3.5-5.0) g/dL Lipase (23-300) U/L Disposition Clinical Impression: Exertional dyspnea, Chest pain Disposition: ADMITTED IP TO THIS HOSP Condition: Fair Referrals: Anusha Reno III, MD [Primary Care Provider] - 1-2 days
[2019-11-13 07:10] LABS: ALT 78 U/L (4-49); AST 48 U/L (17-59); African American GFR (CKD) >90 (>60 ml/min/1.73 sqM); Albumin 4.5 g/dL (3.5-5.0); Alkaline Phosphatase 75 U/L (38-126); Anion Gap 11 mmol/L; Blood Urea Nitrogen 14 mg/dL (9-20); Calcium 9.5 mg/dL (8.4-10.2); Carbon Dioxide 26 mmol/L (22-30); Chloride 103 mmol/L (98-107); Glucose 111 mg/dL (74-99); Magnesium 1.9 mg/dL (1.6-2.3); Non-African American GFR(CKD) >90 (>60 ml/min/1.73 sqM); Potassium 4.1 mmol/L (3.5-5.1); Sodium 140 mmol/L (137-145); Total Bilirubin 1.6 mg/dL (0.2-1.3); Total Protein 7.8 g/dL (6.3-8.2)
[2019-11-13 07:15] LABS: D-Dimer 0.19 mg/L FEU (<0.60); Partial Thromboplastin Time 25.8 sec (22.0-30.0); Prothrombin Time 10.4 sec (9.0-12.0)
[2019-11-13 07:16] LABS: HCT 47.1 % (39.0-53.0); HGB 15.1 gm/dL (13.0-17.5); MCHC 32.2 g/dL (31.0-37.0); MCV 68.3 fL (80.0-100.0); Mean Platelet Volume 6.8; Microcytosis Marked; Platelet Count 201 k/uL (150-450); RBC 6.89 m/uL (4.30-5.90); RDW 14.7 % (11.5-15.5); WBC 10.7 k/uL (3.8-10.6)
--- NOTE | 2019-11-13 07:17 | XR ---
EXAMINATION TYPE: XR chest 2V DATE OF EXAM: 11/13/2019 COMPARISON: 07/09/2017 HISTORY: Chest pain TECHNIQUE: Frontal and lateral views of the chest are obtained. FINDINGS: There is no focal air space opacity, pleural effusion, or pneumothorax seen. The cardiac silhouette size is mildly enlarged. The osseous structures are intact. Cholecystectomy clips are se en. IMPRESSION: No acute cardiopulmonary process.
[2019-11-13 07:47] LABS: Eosinophils # (M) 1.82 k/uL (0-0.7); Monocytes # (M) 0.75 k/uL (0-1.0); Neutrophils # (M) 5.14 k/uL (1.3-7.7); Neutrophils % (M) 48 %; Nucleated Red Blood Cells 0 /100 WBC (0-0); Total Cells Counted 100
[2019-11-13] MEDS ORDERED: HEPARIN SODIUM,PORCINE 5,000 UNIT/ML 1 ML VIAL IV ONE (08:39)
[2019-11-13] MEDS ORDERED: HEPARIN SODIUM,PORCINE 5,000 UNIT/ML 1 ML VIAL IV PRN (08:39)
[2019-11-13] MEDS ORDERED: NITROGLYCERIN SL TABS 0.4 MG TAB SUBLINGUAL PRN (08:39)
[2019-11-13] MEDS ORDERED: HEPARIN SOD,PORK IN 0.45% NACL 25,000 UNIT in 0.45% NACL 1 250ML.BAG IV SCH (08:45)
[2019-11-13 09:51] VITALS: RESP 18
[2019-11-13] MEDS ORDERED: INFLUENZA VACCINE (6 MOS+) 60 MCG/0.5 ML SYRINGE IM ONE (10:53)
[2019-11-13] MEDS ORDERED: ALPRAZolam 0.25 MG TAB PO PRN (11:16)
--- NOTE | 2019-11-13 11:32 | CONS ---
CONSULTATION Mr. Ramon is a 54-year-old gentleman who came to the emergency room with a complaint of shortness of breath. The patient gives a history that he woke up this morning and he felt winded. He says he could not go up the stairs. The patient took Xanax with some relief of the pain. He continued to feel short of breath. He came over here. He denied any pleuritic chest pain. Denies any cough with expectoration. Patient denies any past history of PE or DVT. The patient was evaluated in the emergency room. BNP level, initial troponin, EKG, and D-dimer test were normal. This patient had a previous cardiac catheterization about 3 years ago, which was normal. He was recently evaluated by stress test in the office about 3 months ago, which was normal. The patient denies any exertional chest discomfort. HOME MEDICATIONS: Home medications include Xanax, probiotic, omeprazole. PAST MEDICAL HISTORY: Past medical history includes the patient had a concussion at the age of 19, history of cholecystectomy, orthopedic surgery, tonsillectomy, left knee arthroscopy and repair of the ligament. PHYSICAL EXAMINATION: This patient's vital signs were stable in the emergency room. Oxygen saturation was 99% on room air. HEAD/ENT examination is negative. Neck is supple. There is no increase in jugular venous pressure. Both the carotid pulses are felt. There is no bruit. Chest is symmetrical. HEART: The PMI is not felt. First and second heart sounds are normal. There is no evidence of any murmur. Lungs are clinically clear to auscultation and percussion. Abdomen is negative. EXTREMITIES: Peripheral pulsations are 2+. Patient's first troponin is normal. Patient's hemoglobin is 15.1. The patient's MCV and MCH are significantly low with normal hemoglobin and an RBC count suggestive of thalassemia minor. The patient's D-dimer test was normal and first troponin is normal. BNP level is 23. IMPRESSION AND PLAN: 1. Shortness of breath, exact etiology undetermined. There is no evidence of any congestive cardiac failure. First troponin is normal. This patient's recent stress test was normal. We will repeat the troponin. If that is normal, patient can be discharged home. 2. Possible thalassemia minor. We will order hemoglobin electrophoresis. MMODL / IJN: [id number] /
--- NOTE | 2019-11-13 12:00 | ECHOF ---
Referral Reason:Chest pain, exertional dyspnea MEASUREMENTS -------- HEIGHT: 177.8 cm WEIGHT: 102.1 kg BP: 121/74 RVIDd: 2.9 cm (< 3.3) IVSd: 1.1 cm (0.6 - 1.1) LVIDd: 4.6 cm (3.9 - 5.3) LVPWd: 1.1 cm (0.6 - 1.1) IVSs: 1.7 cm LVIDs: 2.8 cm LVPWs: 1.8 cm LA Diam: 3.6 cm (2.7 - 3.8) LAESV Index (A-L): 19.32 ml/m Ao Diam: 3.4 cm (2.0 - 3.7) AV Cusp: 2.3 cm (1.5 - 2.6) MV EXCURSION: 21.694 mm (> 18.000) MV EF SLOPE: 131 mm/s (70 - 150) EPSS: 0.7 cm MV E Yuan: 0.68 m/s MV DecT: 194 ms MV A Yuan: 0.61 m/s MV E/A Ratio: 1.12 TAPSE: 18.38 mm FINDINGS -------- Sinus rhythm. This was a technically good study. The left ventricular size is normal. There is borderline concentric left ventricular hypertrophy. Overall left ventricular systolic function is normal with, an EF between 60 - 65 %. The right ventricle is normal in size. Normal LA size by volume 22+/-6 ml/m2. The right atrium is normal in size. Interatrial and interventricular septum intact. The aortic valve is trileaflet and appears structurally normal. The mitral valve is normal. The tricuspid valve appears structurally normal. There is no pulmonic regurgitation present. The aortic root size is normal. IVC Not well visulized. There is no pericardial effusion. CONCLUSIONS -------- 1. Sinus rhythm. 2. This was a technically good study. 3. The left ventricular size is normal. 4. There is borderline concentric left ventricular hypertrophy. 5. Overall left ventricular systolic function is normal with, an EF between 60 - 65 %. 6. The right ventricle is normal in size. 7. Normal LA size by volume 22+/-6 ml/m2. 8. The right atrium is normal in size. 9. Interatrial and interventricular septum intact. 10. The aortic valve is trileaflet and appears structurally normal. 11. The mitral valve is normal. 12. The tricuspid valve appears structurally normal. 13. There is no pulmonic regurgitation present. 14. The aortic root size is normal. 15. IVC Not well visulized. 16. There is no pericardial effusion. SOLDERER: TSERING Paul
[2019-11-13 16:23] VITALS: BP 137/78; PULSE 87; TEMP 98.1
--- NOTE | 2019-11-13 16:26 | P.HPIM ---
History of Present Illness Please consider this combined in H&P and discharge summary Diagnoses: Episodic dyspnea and arm and back pain, completely resolved History of asthma History of GERD This is a pleasant 54 years old male with past medical history of asthma, GERD, presents because he woke up this morning at 4:30 AM enough shortness of breath, that's not relieved by Xanax so he decided to come to emergency room, he denies chest pain however this morning also had developed pain in his left arm and his back. He denies other complaint no headache no weakness, no change in urine or bowel habits, no abdominal pain or nausea vomiting. He has nonspecific dry cough which is mild for 2 weeks. No upper respiratory symptoms, no redness or sore throat, no fever. He denies smoking, alcohol or illicit drugs, he all of a sudden sulcal occasionally Patient was admitted to the observation unit. Patient Vitas looks normal. Left showing mild W BC at 10.7 K, hemoglobin 15.1, platelet 201K, INR 1.0, d-dimer is negative at 0.19, BMP is unremarkable. Liver enzymes not elevated, troponin is less than 0.0122, proBNP is 23, lipase 137. Chest x-ray showing no acute cardiopulmonary process by radiologist. Eventually patient's symptoms completely resolved and his back to his normal state of systolic mean, he worked in the hallways and currently he does not have shortness of breath, no chest pain, no heart pain, no back pain or tenderness. No other symptoms Patient already has been evaluated by bobbin painter and cleared her for discharge. Problems and management plan were discussed with the patient and he verbalized understanding and acceptance Patient was found stable and can be discharged home however he needs follow-up as an outpatient. Patient was instructed to follow up with PCP within one week and patient agrees. Patient agrees with the appointments made for him with his PCP and bobbin painter and states he will follow up pt did not need any scripts CONSTITUTIONAL: No fever, no malaise, no fatigue. HEENT: No recent visual problems or hearing problems. Denied any sore throat. CARDIOVASCULAR: No orthopnea, PND, no palpitations, no syncope. PULMONARY: No shortness of breath, no cough, no hemoptysis. GASTROINTESTINAL: No diarrhea, no nausea, no vomiting, no abdominal pain. Normoactive bowel sounds. NEUROLOGICAL: No headaches, no weakness, no numbness. HEMATOLOGICAL: Denies any bleeding or petechiae. GENITOURINARY: Denies any burning micturition, frequency, or urgency. MUSCULOSKELETAL/RHEUMATOLOGICAL: Denies any joint pain, swelling, or any muscle pain. ENDOCRINE: Denies any polyuria or polydipsia. GENERAL: The patient is alert and oriented x3, not in any acute distress. Well developed, well nourished. HEENT: Pupils are round and equally reacting to light. EOMI. No scleral icterus. No conjunctival pallor. Normocephalic, atraumatic. No pharyngeal erythema. No thyromegaly. CARDIOVASCULAR: S1 and S2 present. No murmurs, rubs, or gallops. PULMONARY: Chest is clear to auscultation, no wheezing or crackles. ABDOMEN: Soft, nontender, nondistended, normoactive bowel sounds. No palpable organomegaly. MUSCULOSKELETAL: No joint swelling or deformity. EXTREMITIES: No cyanosis, clubbing, or pedal edema. NEUROLOGICAL: Gross neurological examination did not reveal any focal deficits. SKIN: No rashes. No petechiae Time spent more than 35 minutes Past Medical History Past Medical History: Asthma, Chest Pain / Angina, GERD/Reflux Additional Past Medical History / Comment(s): Concussion age 19 yrs, possible past stomach ulcer History of Any Multi-Drug Resistant Organisms: None Reported Past Surgical History: Adenoidectomy, Cholecystectomy, Orthopedic Surgery, Tonsillectomy Additional Past Surgical History / Comment(s): 2017 Cardiac cath, EGD, colonoscopy, L knee arthroscopic legament repair, L knee arthroscopic meniscus repair, surgery for deviated septum. Past Anesthesia/Blood Transfusion Reactions: No Reported Reaction, Motion Sickness Smoking Status: Never smoker - Past Family History Father Family Medical History: Liver Disease Additional Family Medical History / Comment(s): Non alcoholic cirrhosis. Father is in hospice. Mother Family Medical History: Asthma Additional Family Medical History / Comment(s): Chronic bronchitis. Mother is living. Son(s) Family Medical History: Cancer Additional Family Medical History / Comment(s): osteosarcoma Medications and Allergies Home Medications Medication Instructions Recorded Confirmed Type ALPRAZolam [Xanax] 0.25 mg PO Q8HR PRN 11/13/19 11/13/19 History Aspirin EC [Ecotrin Low Dose] 81 mg PO DAILY 11/13/19 11/13/19 History L.acidoph,Paracasei, B.lactis 1 cap PO DAILY 11/13/19 11/13/19 History [Probiotic] Multivitamins, Thera [Multivitamin 1 tab PO DAILY 11/13/19 11/13/19 History (formulary)] Omeprazole Magnesium [PriLOSEC OTC] 20 mg PO DAILY 11/13/19 11/13/19 History Allergies Allergy/AdvReac Type Severity Reaction Status Date / Time No Known Allergies Allergy Verified 11/13/19 07:34 Physical Exam Vitals: Vital Signs Temp Pulse Pulse Resp BP BP Pulse Ox 11/13/19 09:45 97.8 F 76 18 134/82 96 11/13/19 07:30 78 16 121/74 99 11/13/19 05:56 98.1 F 85 18 148/89 99 Intake and Output 11/13/19 11/13/19 11/13/19 06:59 14:59 22:59 Other: Weight 102.058 kg 102.058 kg Results CBC & Chem 7: 11/13/19 06:50 11/13/19 06:50 Labs: Abnormal Lab Results - Last 24 Hours (Table) 11/13/19 11/13/19 Range/Units 06:50 06:50 WBC 10.7 H (3.8-10.6) k/uL RBC 6.89 H (4.30-5.90) m/uL MCV 68.3 L (80.0-100.0) fL MCH 22.0 L (25.0-35.0) pg Eosinophils # (Manual) 1.82 H (0-0.7) k/uL Glucose 111 H (74-99) mg/dL Total Bilirubin 1.6 H (0.2-1.3) mg/dL ALT 78 H (4-49) U/L Thrombosis Risk Factor Assmnt - Choose All That Apply Any of the Below Risk Factors Present?: Yes Each Factor Represents 1 point: Age 41-60 years, Obesity (BMI >25) Other Risk Factors: No Other congenital or acquired thrombophilia - If yes, enter type in comment: No Thrombosis Risk Factor Assessment Total Risk Factor Score: 2 Thrombosis Risk Factor Assessment Level: Low Risk
[2019-11-14] MEDS ORDERED: ASPIRIN 325 MG TAB PO SCH (09:00)
== END 2019-11-13 17:50 | disposition home or self-care (01) ==
LOC: EC 05:51 → 1SOBS 09:15
PROVIDERS: ADMIT Internal Medicine; ATTEND Internal Medicine
DX: R06.02 Shortness of breath (principal); M54.9 Dorsalgia, unspecified; M79.602 Pain in left arm; K21.9 Gastro-esophageal reflux disease without esophagitis; J45.909 Unspecified asthma, uncomplicated; F41.9 Anxiety disorder, unspecified; Z79.82 Long term (current) use of aspirin; Z79.899 Other long term (current) drug therapy; Z90.49 Acquired absence of other specified parts of digestive tract; Z90.89 Acquired absence of other organs; Z84.89 Family history of other specified conditions; Z82.5 Family history of asthma and other chronic lower respiratory diseases; Z80.8 Family history of malignant neoplasm of other organs or systems
CPT/HCPCS: 96366; 96376; 96365; 96375; 99285; 36415; 93005; 93306; 85379; 83880; 80053; 83690; 83735; 84484; 85025; 85610; 85730; 71046; 90686; G0378; G0008; J1644 ×2; J1885

== ENCOUNTER 2022-06-16 13:00 | Observation (INO) | payer BC ==
--- NOTE | 2022-06-16 13:19 | ED ---
Chest Pain HPI - General Chief Complaint: Chest Pain Stated Complaint: CORY,post-Covid,from urgent care Time Seen by Provider: 06/16/22 13:05 Source: patient Mode of arrival: ambulatory Limitations: no limitations - History of Present Illness Initial Comments: 57-year-old male presents to the emergency room for shortness of breath and chest pressure. States that it started earlier this morning around 8:30 PM when he was washing his boat. States he became acutely short of breath. Attempted to sit down and rest however still winded. He did have Covid 2 weeks ago. States that he had cough and shortness of breath however this resolved. He has had some continued diaphoresis and states that today he was extremely diaphoretic. He denies previous history of cardiac issues. Did have a heart cath 5 years ago which was clean. Follows the Dr. Long. He had asthma as a child however has not had any issues as an adult. No history of DVT or PE. No calf pain or swelling. Went into an urgent care when he mentioned that he was having chest pain, they recommended that he come to the emergency room for further evaluation. - Related Data Home Medications Medication Instructions Recorded Confirmed ALPRAZolam [Xanax] 0.125 - 0.25 mg PO Q8H PRN 11/13/19 06/16/22 Aspirin EC [Ecotrin Low Dose] 81 mg PO DAILY 11/13/19 06/16/22 L.acidoph,Paracasei, B.lactis 1 cap PO DAILY 11/13/19 06/16/22 [Probiotic] Dicyclomine [Bentyl] 20 mg PO TID PRN 06/16/22 06/16/22 Allergies Allergy/AdvReac Type Severity Reaction Status Date / Time No Known Allergies Allergy Verified 06/16/22 14:31 Review of Systems ROS Statement: Those systems with pertinent positive or pertinent negative responses have been documented in the HPI. ROS Other: All systems not noted in ROS Statement are negative. EKG Findings - EKG Comments: EKG Findings:: Twelve-lead EKG demonstrates sinus rhythm with a rate of 77. MN interval 170. QRS 92. QTC 393. Mild ST depression in lead 3. No acute ST segment elevations Past Medical History Past Medical History: Asthma, Chest Pain / Angina, GERD/Reflux Additional Past Medical History / Comment(s): Concussion age 19 yrs, possible past stomach ulcer History of Any Multi-Drug Resistant Organisms: None Reported Past Surgical History: Adenoidectomy, Cholecystectomy, Orthopedic Surgery, Tonsillectomy Additional Past Surgical History / Comment(s): 2017 Cardiac cath, EGD, colonos copy, L knee arthroscopic legament repair, L knee arthroscopic meniscus repair, surgery for deviated septum. Past Anesthesia/Blood Transfusion Reactions: No Reported Reaction, Motion Sickness Past Psychological History: Anxiety Past Alcohol Use History: Occasional Past Drug Use History: None Reported - Past Family History Father Family Medical History: Liver Disease Additional Family Medical History / Comment(s): Non alcoholic cirrhosis. Father is in hospice. Mother Family Medical History: Asthma Additional Family Medical History / Comment(s): Chronic bronchitis. Mother is living. Son(s) Family Medical History: Cancer Additional Family Medical History / Comment(s): osteosarcoma General Exam Limitations: no limitations General appearance: alert, in no apparent distress Head exam: Present: atraumatic, normocephalic, normal inspection Eye exam: Present: normal appearance, PERRL, EOMI. Absent: scleral icterus, conjunctival injection, periorbital swelling ENT exam: Present: normal exam, mucous membranes moist Neck exam: Present: normal inspection. Absent: tenderness, meningismus, lymphadenopathy Respiratory exam: Present: normal lung sounds bilaterally. Absent: respiratory distress, wheezes, rales, rhonchi, stridor Cardiovascular Exam: Present: regular rate, normal rhythm, normal heart sounds. Absent: systolic murmur, diastolic murmur, rubs, gallop, clicks GI/Abdominal exam: Present: soft, normal bowel sounds. Absent: distended, tenderness, guarding, rebound, rigid Extremities exam: Present: normal inspection, full ROM, normal capillary refill. Absent: tenderness, pedal edema, joint swelling, calf tenderness Back exam: Present: normal inspection Neurological exam: Present: alert, oriented X3, CN II-XII intact Psychiatric exam: Present: normal affect, normal mood Skin exam: Present: warm, dry, intact, normal color. Absent: rash Course Vital Signs 06/16/22 06/16/22 13:01 13:15 Temperature 98.4 F Pulse Rate 90 Respiratory 18 20 Rate Blood Pressure 153/92 O2 Sat by Pulse 96 Oximetry Chest Pain MDM - MDM Upon arrival patient was placed into room 7. History and physical exam was performed. IV access was established and laboratory studies were conducted. Opponent and D-dimer is negative. Chest x-ray demonstrates no acute process. Recommend admission for cardiac monitoring, trending of the patient's troponins and echo. Patient agreeable. He'll be admitted under sounds physicians Disposition Clinical Impression: Chest pain, Exertional dyspnea Disposition: ADMITTED IP TO THIS HOSP Condition: Stable Is patient prescribed a controlled substance at d/c from ED?: No Time of Disposition: 14:45 Decision to Admit Reason: Admit from EC Decision Date: 06/16/22 Decision Time: 14:45
[2022-06-16 13:37] LABS: Basophils # (A) 0.1 k/uL (0-0.2); Basophils % (A) 1 %; Eosinophils # (A) 0.6 k/uL (0-0.7); Eosinophils % (A) 6 %; HCT 48.1 % (39.0-53.0); Lymphocytes # (A) 1.9 k/uL (1.0-4.8); Lymphocytes % (A) 18 %; MCH 21.8 pg (25.0-35.0); MCHC 31.2 g/dL (31.0-37.0); MCV 69.9 fL (80.0-100.0); Mean Platelet Volume 7.6; Microcytosis Moderate; Monocytes # (A) 0.8 k/uL (0-1.0); Monocytes % (A) 8 %; Neutrophils % (A) 66 %; Platelet Count 261 k/uL (150-450); RBC 6.89 m/uL (4.30-5.90); WBC 10.5 k/uL (3.8-10.6)
--- NOTE | 2022-06-16 13:37 | XR ---
EXAMINATION TYPE: XR chest 2V DATE OF EXAM: 06/16/2022 1:25 PM COMPARISON: Chest radiographs from 11/13/2019 TECHNIQUE: XR chest 2V Frontal and lateral views of the chest. CLINICAL INDICATION:Male, 57 years old with history of Chest Pain; FINDINGS: Lungs/Pleura: There is no evidence of pleural effusion, focal consolidation, or pneumothorax. Pulmonary vascularity: Unremarkable. Heart/mediastinum: Cardiomediastinal silhouette is unremarkable. Musculoskeletal: No acute osseous pathology. IMPRESSION: No acute cardiopulmonary disease/process.
[2022-06-16 13:44] LABS: ALT 70 U/L (4-49); AST 42 U/L (17-59); Albumin 4.8 g/dL (3.5-5.0); Alkaline Phosphatase 97 U/L (38-126); Anion Gap 14 mmol/L; Blood Urea Nitrogen 13 mg/dL (9-20); Calcium 9.5 mg/dL (8.4-10.2); Carbon Dioxide 25 mmol/L (22-30); Chloride 99 mmol/L (98-107); Glucose 111 mg/dL (74-99); Potassium 4.3 mmol/L (3.5-5.1); Sodium 138 mmol/L (137-145); Total Bilirubin 1.4 mg/dL (0.2-1.3); Total Protein 7.9 g/dL (6.3-8.2)
[2022-06-16 13:45] LABS: African American GFR (CKD) >90 (>60 ml/min/1.73 sqM); Non-African American GFR(CKD) >90 (>60 ml/min/1.73 sqM)
[2022-06-16 13:53] LABS: INR 0.9 (<1.2); Partial Thromboplastin Time 25.4 sec (22.0-30.0); Prothrombin Time 10.3 sec (9.0-12.0)
[2022-06-16] MEDS ORDERED: NALOXONE 0.4 MG/ML 1 ML VIAL IV PRN (14:45)
[2022-06-16] MEDS ORDERED: ASPIRIN 81 MG PO STA (14:48)
[2022-06-16] MEDS ORDERED: DICYCLOMINE 20 MG TAB PO PRN (17:35)
[2022-06-16] MEDS ORDERED: ALPRAZolam 0.25 MG TAB PO PRN (17:35)
[2022-06-16] MEDS ORDERED: IPRATROPIUM-ALBUTEROL 3 ML NEB INHALATION PRN (18:05)
--- NOTE | 2022-06-16 18:05 | P.HPIM ---
History of Present Illness H&P Date: 06/16/22 Chief Complaint: SOB The patient is a 57 y.o male who was diagnosed with Covid 2 weeks ago. The patient said that he only had few symptoms related to Covid. He received 2 doses of the primary vaccine. The patient states he also has been experiencing some episodes of diaphoresis. Today he became short of breath and diaphoretic presented to urgent care and was referred to the emergency room for evaluation. In the emergency room he had a chest x-ray, negative troponin and negative d- dimer he was hospitalized for further workup and management. The patient states he had a cardiac catheterization 5 years ago which was clean. He denies any fevers chills lower extremity edema. Review of Systems Complete review of system was done and negative unless stated above Past Medical History Past Medical History: Asthma, Chest Pain / Angina, GERD/Reflux Additional Past Medical History / Comment(s): Concussion age 19 yrs, possible past stomach ulcer History of Any Multi-Drug Resistant Organisms: None Reported Past Surgical History: Adenoidectomy, Cholecystectomy, Orthopedic Surgery, Tonsillectomy Additional Past Surgical History / Comment(s): 2017 Cardiac cath no stents, EGD, colonoscopy, L knee arthroscopic legiment repair, L knee arthroscopic meniscus repair, surgery for deviated septum. Past Anesthesia/Blood Transfusion Reactions: No Reported Reaction, Motion Sickness Past Psychological History: Anxiety Additional Psychological History / Comment(s): Pt resides with his spouse. Pt is independent. Smoking Status: Never smoker Past Alcohol Use History: Occasional Past Drug Use History: None Reported - Past Family History Father Family Medical History: Liver Disease Additional Family Medical History / Comment(s): Non alcoholic cirrhosis. Father is in hospice. Mother Family Medical History: Asthma Additional Family Medical History / Comment(s): Chronic bronchitis. Mother is living. Son(s) Family Medical History: Cancer Additional Family Medical History / Comment(s): osteosarcoma Medications and Allergies Home Medications Medication Instructions Recorded Confirmed Type ALPRAZolam [Xanax] 0.125 - 0.25 mg PO Q8H PRN 11/13/19 06/16/22 History Aspirin EC [Ecotrin Low Dose] 81 mg PO DAILY 11/13/19 06/16/22 History L.acidoph,Paracasei, B.lactis 1 cap PO DAILY 11/13/19 06/16/22 History [Probiotic] Dicyclomine [Bentyl] 20 mg PO TID PRN 06/16/22 06/16/22 History Allergies Allergy/AdvReac Type Severity Reaction Status Date / Time No Known Allergies Allergy Verified 06/16/22 14:31 Physical Exam Vitals: Vital Signs Temp Pulse Pulse Resp BP BP Pulse Ox 06/16/22 16:47 76 18 06/16/22 16:10 98.2 F 76 18 150/88 97 06/16/22 16:00 84 18 148/90 97 06/16/22 13:15 20 06/16/22 13:01 98.4 F 90 18 153/92 96 Intake and Output 06/16/22 06/16/22 06/16/22 06:59 14:59 22:59 Other: Voiding Method Toilet Weight 100.698 kg 100.698 kg - Constitutional General appearance: no acute distress - EENT Eyes: PERRLA - Respiratory Respiratory: bilateral: CTA - Cardiovascular Rhythm: regular - Gastrointestinal General gastrointestinal: normal bowel sounds - Integumentary Integumentary: normal turgor - Neurologic Neurologic: CNII-XII intact - Musculoskeletal Musculoskeletal: strength equal bilaterally - Psychiatric Psychiatric: A&O x's 3, appropriate affect Results CBC & Chem 7: 06/16/22 13:22 06/16/22 13:22 Labs: Abnormal Lab Results - Last 24 Hours (Table) 06/16/22 06/16/22 Range/Units 13:22 13:22 RBC 6.89 H (4.30-5.90) m/uL MCV 69.9 L (80.0-100.0) fL MCH 21.8 L (25.0-35.0) pg Glucose 111 H (74-99) mg/dL Total Bilirubin 1.4 H (0.2-1.3) mg/dL ALT 70 H (4-49) U/L Thrombosis Risk Factor Assmnt - Choose All That Apply Any of the Below Risk Factors Present?: Yes Each Factor Represents 1 point: Age 41-60 years, Obesity (BMI >25) Other Risk Factors: No Other congenital or acquired thrombophilia - If yes, enter type in comment: No Thrombosis Risk Factor Assessment Total Risk Factor Score: 2 Thrombosis Risk Factor Assessment Level: Low Risk Assessment and Plan (1) Chest pain Narrative/Plan: Serial cardiac enzymes, echo, cardiology consult, KANIKA, Current Visit: Yes Status: Acute Code(s): R07.9 - CHEST PAIN, UNSPECIFIED SNOMED Code(s): 99469851 (2) Asthma Narrative/Plan: since childhood monitor , alla prn Current Visit: Yes Status: Acute Code(s): J45.909 - UNSPECIFIED ASTHMA, UNCOMPLICATED SNOMED Code(s): 384513272
[2022-06-17] MEDS ORDERED: ACETAMINOPHEN TAB 325 MG TAB PO PRN (08:44)
--- NOTE | 2022-06-17 08:49 | P.CRDCN ---
History of Present Illness History of present illness: HISTORY OF PRESENTING ILLNESS Patient is pleasant 57-year-old male with history of minimal luminal irregularities but heart catheterization 2017 and recent COVID-19 infection who presents secondary to episodes of diaphoresis with exertion or last week. He states he did have COVID-19 infection to a half weeks ago and then since that time has noted that if he overdoes it he will break out in a sweat. He denies any associated shortness breath or chest pain. He does admit to some atypical chest burning which is worse after he coughs. He has not had much of a cough though. Currently feels fairly well however has been concerned as he was doing small activities such as working on his boat and was getting sweaty. Blood work shows white blood cell count 10.5, d-dimer 0.25, troponin normal 3, proBNP 30. EKG shows sinus rhythm without significant ST or T-wave abnormalities. Chest x- ray showed no acute process. REVIEW OF SYSTEMS At the time of my exam: CONSTITUTIONAL: Denies fever or chills. CARDIOVASCULAR: Denies chest pain, shortness of breath, orthopnea, PND or palpitations. RESPIRATORY: Denies cough. GASTROINTESTINAL: Denies abdominal pain, diarrhea, constipation, nausea or vomiting. MUSCULOSKELETAL: Denies myalgias. NEUROLOGIC: Denies numbness, tingling or weakness. ENDOCRINE: Denies fatigue, weight change, polydipsia or polyurina. GENITOURINARY: Denies burning, hematuria or urgency with micturation. HEMATOLOGIC: Denies history of anemia or bleeding. PHYSICAL EXAMINATION Vital signs reviewed. CONSTITUTIONAL: No apparent distress. HEENT: Head is normocephalic. Pupils are equal, round. Sclerae anicteric. Mucous membranes of the mouth are moist. No JVD. No carotid bruit. CHEST EXAMINATION: Lungs are clear to auscultation. No chest wall tenderness is noted on palpation or with deep breathing. HEART EXAMINATION: Regular rate and rhythm. S1, S2 heard. No murmurs, gallops or rub. ABDOMEN: Soft, nontender. Positive bowel sounds. EXTREMITIES: 2+ peripheral pulses, no lower extremity edema and no calf tenderness. NEUROLOGIC EXAMINATION: Patient is awake, alert and oriented x3. ASSESSMENT 1. Episodes of diaphoresis with exertion after COVID-19 infection. Do not suspect acute Marty syndrome 2. Atypical chest burning worse with cough appears more pleuritic 3. History of mild luminal irregularities by heart catheterization 2017 4. Recent COVID-19 infection 2.5 weeks ago. PLAN Patient's symptoms are atypical and troponins normal, proBNP normal, EKG normal, chest x-ray normal, d-dimer normal. Do not suspect any significant complications from coded and prior workup with heart catheterization 2017 normal. Patient is stable for discharge home with outpatient follow-up with Dr. Long in 1 week for likely outpatient stress test. Past Medical History Past Medical History: Asthma, Chest Pain / Angina, GERD/Reflux Additional Past Medical History / Comment(s): Concussion age 19 yrs, possible past stomach ulcer History of Any Multi-Drug Resistant Organisms: None Reported Past Surgical History: Adenoidectomy, Cholecystectomy, Orthopedic Surgery, Tonsillectomy Additional Past Surgical History / Comment(s): 2017 Cardiac cath no stents, EGD, colonoscopy, L knee arthroscopic legiment repair, L knee arthroscopic meniscus repair, surgery for deviated septum. Past Anesthesia/Blood Transfusion Reactions: No Reported Reaction, Motion Sickness Past Psychological History: Anxiety Additional Psychological History / Comment(s): Pt resides with his spouse. Pt is independent. Smoking Status: Never smoker Past Alcohol Use History: Occasional Past Drug Use History: None Reported - Past Family History Father Family Medical History: Liver Disease Additional Family Medical History / Comment(s): Non alcoholic cirrhosis. Father is in hospice. Mother Family Medical History: Asthma Additional Family Medical History / Comment(s): Chronic bronchitis. Mother is living. Son(s) Family Medical History: Cancer Additional Family Medical History / Comment(s): osteosarcoma Medications and Allergies Home Medications Medication Instructions Recorded Confirmed Type ALPRAZolam [Xanax] 0.125 - 0.25 mg PO Q8H PRN 11/13/19 06/16/22 History Aspirin EC [Ecotrin Low Dose] 81 mg PO DAILY 11/13/19 06/16/22 History L.acidoph,Paracasei, B.lactis 1 cap PO DAILY 11/13/19 06/16/22 History [Probiotic] Dicyclomine [Bentyl] 20 mg PO TID PRN 06/16/22 06/16/22 History Allergies Allergy/AdvReac Type Severity Reaction Status Date / Time No Known Allergies Allergy Verified 06/16/22 14:31 Physical Exam Vitals: Vital Signs Temp Pulse Pulse Resp BP BP Pulse Ox 06/17/22 02:04 97.8 F 70 16 114/74 99 06/16/22 20:00 81 16 06/16/22 19:20 98.3 F 81 16 161/83 97 06/16/22 16:47 76 18 06/16/22 16:10 98.2 F 76 18 150/88 97 06/16/22 16:00 84 18 148/90 97 06/16/22 13:15 20 06/16/22 13:01 98.4 F 90 18 153/92 96 Intake and Output 06/16/22 06/17/22 06/17/22 22:59 06:59 14:59 Intake Total 200 Balance 200 Intake: Oral 200 Other: Voiding Method Toilet # Voids 2 Weight 100.698 kg Results 06/16/22 13:22 06/16/22 13:22 Cardiac Enzymes 06/16/22 06/16/22 06/16/22 Range/Units 13:22 13:22 15:29 AST 42 (17-59) U/L Troponin I <0.012 <0.012 (0.000-0.034) ng/mL 06/16/22 Range/Units 17:55 AST (17-59) U/L Troponin I <0.012 (0.000-0.034) ng/mL Coagulation 06/16/22 Range/Units 13:22 PT 10.3 (9.0-12.0) sec APTT 25.4 (22.0-30.0) sec CBC 06/16/22 Range/Units 13:22 WBC 10.5 (3.8-10.6) k/uL RBC 6.89 H (4.30-5.90) m/uL Hgb 15.0 (13.0-17.5) gm/dL Hct 48.1 (39.0-53.0) % Plt Count 261 (150-450) k/uL Comprehensive Metabolic Panel 06/16/22 Range/Units 13:22 Sodium 138 (137-145) mmol/L Potassium 4.3 (3.5-5.1) mmol/L Chloride 99 (98-107) mmol/L Carbon Dioxide 25 (22-30) mmol/L BUN 13 (9-20) mg/dL Creatinine 0.83 (0.66-1.25) mg/dL Glucose 111 H (74-99) mg/dL Calcium 9.5 (8.4-10.2) mg/dL AST 42 (17-59) U/L ALT 70 H (4-49) U/L Alkaline Phosphatase 97 (38-126) U/L Total Protein 7.9 (6.3-8.2) g/dL Albumin 4.8 (3.5-5.0) g/dL Current Medications Generic Name Dose Route Start Last Admin Trade Name Freq PRN Reason Stop Dose Admin Acetaminophen 650 mg 06/17/22 08:44 Acetaminophen Tab 325 Mg Tab PO Q6HR PRN Fever and/ or Pain Albuterol/Ipratropium 3 ml 06/16/22 18:05 Ipratropium-Albuterol 3 Ml Neb INHALATION RT-Q2H PRN Shortness Of Breath Or Wheezing Alprazolam 0.25 mg 06/16/22 17:35 Alprazolam 0.25 Mg Tab PO Q8H PRN Anxiety Aspirin 81 mg 06/17/22 09:00 06/17/22 07:35 Aspirin 81 Mg PO 81 mg DAILY DANISH Administration Dicyclomine HCl 20 mg 06/16/22 17:35 Dicyclomine 20 Mg Tab PO TID PRN GI Upset Naloxone HCl 0.2 mg 06/16/22 14:45 Naloxone 0.4 Mg/Ml 1 Ml Vial IV Q2M PRN Opioid Reversal Intake and Output 06/16/22 06/17/22 06/17/22 22:59 06:59 14:59 Intake Total 200 Balance 200 Intake: Oral 200 Other: Voiding Method Toilet # Voids 2 Weight 100.698 kg 06/16/22 13:22 06/16/22 13:22
[2022-06-17] MEDS ORDERED: ASPIRIN 81 MG PO SCH (09:00)
[2022-06-17 09:20] LABS: HCT 44.5 % (39.6-50.0); HGB 13.7 g/dL (13.0-17.0); MCH 21.3 pg (27.0-32.0); MCHC 30.8 g/dL (32.0-37.0); MCV 69.2 fL (80.0-97.0); Mean Platelet Volume 10.4 fL (9.5-12.2); NRBC Per 100 WBC 0 /100 WBCS (0.0-0.0); Platelet Count 248 X 10*3/uL (140-440); RBC 6.43 X 10*6/uL (4.40-5.60); RDW 17.5 % (11.5-14.5); WBC 10.12 X 10*3/uL (4.50-10.00)
[2022-06-17 09:33] LABS: Anion Gap 11.1 mmol/L (10.00-18.00); BUN/Creat Ratio 13.44 Ratio (12.00-20.00); Blood Urea Nitrogen 12.1 mg/dL (9.0-27.0); Carbon Dioxide 27.9 mmol/L (20.0-27.5); Non-African American GFR(CKD) 95.8 (60.0-200.0); Potassium 4.2 mmol/L (3.5-5.5)
[2022-06-17 10:07] LABS: Basophils # (A) 0.06 X 10*3/uL (0.00-0.10); Basophils % (A) 0.6 %; Eosinophils # (A) 0.67 X 10*3/uL (0.04-0.35); Eosinophils % (A) 6.6 %; Immature Grans, Automated 0.5 %; Lymphocytes # (A) 3.12 X 10*3/uL (0.90-5.00); Lymphocytes % (A) 30.8 %; Monocytes % (A) 9.9 %; Neutrophils # (A) 5.22 X 10*3/uL (1.80-7.70); Neutrophils % (A) 51.6 %
[2022-06-17 10:08] LABS: Microcytosis (M) 2+
[2022-06-17] MEDS ORDERED: RX INFO: IV CONTRAST WAS GIVEN 1 EACH MISC MISCELLANE PRN (13:14)
--- NOTE | 2022-06-17 14:57 | CT ---
EXAMINATION TYPE: CT chest w con DATE OF EXAM: 06/17/2022 COMPARISON: None HISTORY: Shortness of breath, chest pains CT DLP: 487.9 mGycm Automated exposure control for dose reduction was used. CONTRAST: Performed with IV Contrast, patient injected with 100 mL of Isovue 300. There is mild subsegmental atelectasis at the lung bases. No pleural effusion. No pericardial effusio n. Heart size is fairly normal. There is no mediastinal adenopathy. There are no hilar masses. Thoracic aorta is intact. No aneurysm or dissection. There is fatty infiltration of the liver. The thoracic vertebra. Tach. No compression fracture. Andrade um is intact. No filling defects seen in the pulmonary arteries. IMPRESSION: Mild subsegmental atelectasis at the lung bases. Fatty infiltration of the liver. No suspicious pulmo nary mass.
[2022-06-17 15:01] VITALS: BP 145/85; PULSE 81; RESP 18; TEMP 97.7
--- NOTE | 2022-06-17 15:20 | P.DS ---
Providers Date of admission: 06/16/22 14:48 Expected date of discharge: 06/17/22 Attending physician: Angella Munoz MD Consults: 06/16/22 14:45 Consult Physician Urgent Consulting Provider: [facility] Consult Reason/Comments: acute chest pain, possible acs Do you want consulting provider notified?: Yes Primary care physician: Anusha Reno - Discharge Diagnosis(es) (1) Chest pain Was all atypical in nature patient will follow up with cardiology as an outpatient Current Visit: Yes Status: Acute (2) Asthma stable no exacerbation Current Visit: Yes Status: Acute Hospital Course: The patient is hospitalized at [facility] cardiac enzymes which were negative. He was seen by cardiology and given the atypical nature of his complaints he will follow up for outpatient stress test with cardiology in 1 week. The patient had a CT of the chest with contrast that did not show any anemia or masses there was atelectasis at the bases. He was stable for discharge with no change in medications. Patient Condition at Discharge: Stable Plan - Discharge Summary Discharge Rx Participant: No New Discharge Prescriptions: No Action Aspirin EC [Ecotrin Low Dose] 81 mg PO DAILY L.acidoph,Paracasei, B.lactis [Probiotic] 1 cap PO DAILY ALPRAZolam [Xanax] 0.125 - 0.25 mg PO Q8H PRN PRN Reason: Anxiety Dicyclomine [Bentyl] 20 mg PO TID PRN PRN Reason: Gi Upset Discharge Medication List ALPRAZolam [Xanax] 0.125 - 0.25 mg PO Q8H PRN 11/13/19 [History] Aspirin EC [Ecotrin Low Dose] 81 mg PO DAILY 11/13/19 [History] L.acidoph,Paracasei, B.lactis [Probiotic] 1 cap PO DAILY 11/13/19 [History] Dicyclomine [Bentyl] 20 mg PO TID PRN 06/16/22 [History] Follow up Appointment(s)/Referral(s): Scott Long MD [STAFF PHYSICIAN] - 1 Week Anusha Reno III, MD [Primary Care Provider] - 1-2 days Discharge Disposition: HOME SELF-CARE
== END 2022-06-17 15:40 | disposition home or self-care (01) ==
LOC: EC 13:00 → 6NMEDSUR 14:48
PROVIDERS: ADMIT Internal Medicine; ATTEND Internal Medicine
DX: R07.9 Chest pain, unspecified (principal); J98.11 Atelectasis; R06.02 Shortness of breath; R61 Generalized hyperhidrosis; J45.909 Unspecified asthma, uncomplicated; Z86.16 Personal history of COVID-19; Z95.5 Presence of coronary angioplasty implant and graft; K21.9 Gastro-esophageal reflux disease without esophagitis; Z82.5 Family history of asthma and other chronic lower respiratory diseases; Z90.49 Acquired absence of other specified parts of digestive tract; Z98.890 Other specified postprocedural states; F41.9 Anxiety disorder, unspecified; Z87.19 Personal history of other diseases of the digestive system; Z87.09 Personal history of other diseases of the respiratory system; Z87.898 Personal history of other specified conditions; Z79.82 Long term (current) use of aspirin; Z79.899 Other long term (current) drug therapy
CPT/HCPCS: 99285; 36415; 93005; 85379; 83880; 80053; 80048; 83735; 84484; 85025 ×2; 85610; 85730; 71046; 71260; G0378 ×2; Q9967

== ENCOUNTER → 2023-06-01 | Outpatient (CLI) | payer BC ==
[2023-06-02 06:48] LABS: HCT 51.1 % (39.6-50.0); HGB 15.4 d/dL (13.0-17.0); MCH 21.6 pg (27.0-32.0); MCHC 30.1 d/dL (32.0-37.0); MCV 71.6 FL (80.0-97.0); Mean Platelet Volume 10.9 FL (9.5-12.2); NRBC Per 100 WBC 0 X 10*3/uL (0.00-0.01); Platelet Count 260 X 10*3/uL (140-440); RBC 7.14 X 10*6/uL (4.40-5.60); RDW 18.3 % (11.5-14.5); WBC 9.09 X 10*3/uL (4.50-10.00)
[2023-06-02 08:11] LABS: ALT 56 U/L (10-49); AST 37 U/L (14-35); Albumin 4.8 d/dL (3.8-4.9); Albumin/Globulin Ratio 1.78 Ratio (1.60-3.17); Alkaline Phosphatase 84 U/L (41-126); BUN/Creat Ratio 10.89 Ratio (12.00-20.00); Blood Urea Nitrogen 9.8 mg/dL (9.0-27.0); Calcium 9.9 mg/dL (8.7-10.3); Carbon Dioxide 27.3 mmol/L (21.6-31.8); Chloride 99 mmol/L (96-109); Chol/HDL Ratio 4.93 Ratio; Globulin 2.7 d/dL (1.6-3.3); Glucose 116 mg/dL (70-110); LDL Cholesterol,Calculated 102.5 mg/dL (0.0-131.0); Magnesium 2.1 mg/dL (1.5-2.4); Potassium 4.8 mmol/L (3.5-5.5); Sodium 139 mmol/L (135-145); Total Bilirubin 0.9 mg/dL (0.3-1.2); Total Protein 7.5 d/dL (6.2-8.2)
[2023-06-03 16:32] LABS: Basophils # (M) 0 (0.00-0.10); Eosinophils # (M) 0.7272 (0.04-0.35); Lymphocytes # (M) 2.6361 (0.90-5.00); Monocytes # (M) 0.5454 (0.20-1.00); Neutrophils # (M) 4.7268 (2.00-8.90); Neutrophils % (M) 52 %
[2023-06-03 16:33] LABS: Other Cells % 5 %
[2023-06-03 16:34] LABS: Nucleated Red Blood Cells 1
== END | disposition home or self-care (01) ==
LOC: LABWHC1 05-31 08:54
PROVIDERS: ATTEND Internal Medicine
DX: Z00.00 Encounter for general adult medical examination without abnormal findings (principal); Z12.5 Encounter for screening for malignant neoplasm of prostate; E55.9 Vitamin D deficiency, unspecified; R25.2 Cramp and spasm
CPT/HCPCS: 36415; 80053; 80061; 82306; 83735; 84153; 85025

== ENCOUNTER 2023-11-16 14:28 | Emergency (ER) | payer BC ==
[2023-11-16] MEDS ORDERED: SODIUM CHLORIDE 0.9% 500 ML 500 ML IV STA (15:23)
--- NOTE | 2023-11-16 15:40 | ED ---
Arrhythmia/Palpitations HPI - General Chief Complaint: Arrhythmia/Palpitations Stated Complaint: heart palpatations Time Seen by Provider: 11/16/23 15:18 Source: patient, family, RN notes reviewed, old records reviewed Mode of arrival: ambulatory Limitations: no limitations - History of Present Illness Initial Comments: This is a 58-year-old male to the emergency department for evaluation. Patient coming in for evaluation of palpitations with history of palpitations. Patient has been through cardiology with multiple different tests including stress test, cardiac catheterization patient has even more a Holter monitor. Patient does not have follow-up on results of all these testing patient's coming in with what he thought was atrial fibrillation prior to arrival as his watch told him he was in atrial fibrillation MD Complaint: rapid heart beat, "heart racing", "skipped beats", palpitations, irregular heart beat -: hour(s) Context: occurred during rest, occurred during exertion Arrhythmia History: other (Unknown cause of palpitations) Associated Symptoms: chest pain, shortness of breath Treatments Prior to Arrival: other (0) - Related Data Home Medications Medication Instructions Recorded Confirmed ALPRAZolam [Xanax] 0.125 - 0.25 mg PO Q8H PRN 11/13/19 06/16/22 Aspirin EC [Ecotrin Low Dose] 81 mg PO DAILY 11/13/19 06/16/22 L.acidoph,Paracasei, B.lactis 1 cap PO DAILY 11/13/19 06/16/22 [Probiotic] Dicyclomine [Bentyl] 20 mg PO TID PRN 06/16/22 06/16/22 Allergies Allergy/AdvReac Type Severity Reaction Status Date / Time No Known Allergies Allergy Verified 06/16/22 14:31 Review of Systems ROS Statement: Those systems with pertinent positive or pertinent negative responses have been documented in the HPI. ROS Other: All systems not noted in ROS Statement are negative. Past Medical History Past Medical History: Asthma, Chest Pain / Angina, GERD/Reflux Additional Past Medical History / Comment(s): Concussion age 19 yrs, possible past stomach ulcer History of Any Multi-Drug Resistant Organisms: None Reported Past Surgical History: Adenoidectomy, Cholecystectomy, Orthopedic Surgery, Tonsillectomy Additional Past Surgical History / Comment(s): 2017 Cardiac cath, EGD, colonoscopy, L knee arthroscopic legament repair, L knee arthroscopic meniscus repair, surgery for deviated septum. Past Anesthesia/Blood Transfusion Reactions: No Reported Reaction, Motion S ickness Past Psychological History: Anxiety Smoking Status: Never smoker Past Alcohol Use History: Occasional Past Drug Use History: None Reported - Past Family History Father Family Medical History: Liver Disease Additional Family Medical History / Comment(s): Non alcoholic cirrhosis. Father is in hospice. Mother Family Medical History: Asthma Additional Family Medical History / Comment(s): Chronic bronchitis. Mother is living. Son(s) Family Medical History: Cancer Additional Family Medical History / Comment(s): osteosarcoma General Exam Limitations: no limitations General appearance: alert, in no apparent distress, anxious Head exam: Present: atraumatic, normocephalic, normal inspection Eye exam: Present: normal appearance, PERRL, EOMI. Absent: scleral icterus, conjunctival injection, periorbital swelling ENT exam: Present: normal exam, mucous membranes moist Neck exam: Present: normal inspection. Absent: tenderness, meningismus, lymphadenopathy Respiratory exam: Present: normal lung sounds bilaterally. Absent: respiratory distress, wheezes, rales, rhonchi, stridor Cardiovascular Exam: Present: regular rate, normal rhythm, normal heart sounds. Absent: systolic murmur, diastolic murmur, rubs, gallop, clicks GI/Abdominal exam: Present: soft, normal bowel sounds. Absent: distended, tenderness, guarding, rebound, rigid Extremities exam: Present: normal inspection, full ROM, normal capillary refill. Absent: tenderness, pedal edema, joint swelling, calf tenderness Back exam: Present: normal inspection Neurological exam: Present: alert, oriented X3, CN II-XII intact Psychiatric exam: Present: normal affect, normal mood Skin exam: Present: warm, dry, intact, normal color. Absent: rash Course Vital Signs 11/16/23 11/16/23 11/16/23 14:33 15:44 17:00 Temperature 97 F L Pulse Rate 98 90 80 Respiratory 16 18 18 Rate Blood Pressure 143/88 142/84 144/96 O2 Sat by Pulse 99 96 97 Oximetry 11/16/23 17:52 Temperature 98.1 F Pulse Rate 82 Respiratory 18 Rate Blood Pressure 129/80 O2 Sat by Pulse 96 Oximetry - Reevaluation(s) Reevaluation #1: 11/16/23 15:47 Record is reviewed Reevaluation #2: Patient remains asymptomatic in the ER Reevaluation #3: Patient informed of results and questions answered Reevaluation #4: 11/16/23 15:47 Was pt. sent in by a medical professional or institution (HEIDY Ruano, [employer]HW[employer] ENGINEER, urgent care, hospital, or fdc...) When possible be specific @ -no Did you speak to anyone other than the patient for history (EMS, parent, family, police, friend...)? What history was obtained from this source @ -no Did you review nursing and triage notes (agree or disagree)? Why? @ -agree Are old charts reviewed (outside hosp., previous admission, EMS record, old EKG, old radiological studies, urgent care reports/EKG's, fdc records)? Report findings @ -yes Differential Diagnosis (chest pain, altered mental status, abdominal pain women, abdominal pain men, vaginal bleeding, weakness, fever, dyspnea, syncope, headache, dizziness, GI bleed, back pain, seizure, CVA, palpatations, mental health, musculoskeletal)? @ -prior EKG interpreted by me (3pts min.). @ -yes X-rays interpreted by me (1pt min.). @ -no CT interpreted by me (1pt min.). @ -no U/S interpreted by me (1pt. min.). @ -no What testing was considered but not performed or refused? (CT, X-rays, U/S, labs)? Why? @ -none What meds were considered but not given or refused? Why? @ -none Did you discuss the management of the patient with other professionals (professionals i.e. HEIDY Ruano, [employer]HW[employer] ENGINEER, lab, RT, psych nurse, social human services assistants, program management professional, teacher, infantry officer, case technician)? Give summary @ -no Was smoking cessation discussed for >3mins.? @ -no Were there social determinants of health that impacted care today? How? (Homelessness, low income, unemployed, alcoholism, drug addiction, transpo rtation, low edu. Level, literacy, decrease access to med. care, retirement, rehab)? @ -none Was there de-escalation of care discussed even if they declined (Discuss DNR or withdrawal of care, Hospice)? DNR status @ -no What co-morbidities impacted this encounter? (DM, HTN, Smoking, COPD, CAD, Cancer, CVA, ARF, Chemo, Hep., AIDS, mental health diagnosis, sleep apnea, morbid obesity)? @ -none Was patient admitted / discharged? Hospital course, mention meds given and route, prescriptions, significant lab abnormalities, going to OR and other pertinent info. @ - 58 male who has been followed with outpatient cardiology for arrhythmia or symptoms and causes of palpitations. Patient had the symptoms again prior to arrival but here in the ER feels well patient is scheduled to get a Holter monitor will continue that visit. Patient has no acute findings here in the ER and can be discharged home, no chest pain Discharge Was critical care preformed (if so, how long)? @ -no Undiagnosed new problem with uncertain prognosis? @ -no Drug Therapy requiring intensive monitoring for toxicity (Heparin, Nitro, Insulin, Cardizem)? @ -no Were any procedures done? @ -no Diagnosis/symptom? @ -Palpitations Acute, or Chronic, or Acute on Chronic? @ -Acute Uncomplicated (without systemic symptoms) or Complicated (systemic symptoms)? @ -Complicated Side effects of treatment? @ -no Exacerbation, Progression, or Severe Exacerbation? @ -exacerbation Poses a threat to life or bodily function? How? (Chest pain, [place], [place], pneumonia, PE, COPD, DKA, ARF, appy, cholecystitis, CVA, Diverticulitis, Homicidal, Suicidal, threat to staff... and all critical care pts) @ -yes with significant arrhythmia Reevaluation #5: Differential Palpitations Ventricular arrhythmias, atrial arrhythmias, myocardial infarction, anemia, thyrotoxicosis, electrolyte imbalance, hypokalemia, pulmonary embolism, pulmonary disease, drugs, alcohol, anxiety, stress.... This is not meant to be an all-inclusive list. EKG Findings - EKG Comments: EKG Findings:: EKG is sinus 86 RI 164 QRS 91 QTC 399 - EKG Results: EKG: interpreted by YUDID Medical Decision Making - Medical Decision Making 58 male who has been followed with outpatient cardiology for arrhythmia or symptoms and causes of palpitations. Patient had the symptoms again prior to arrival but here in the ER feels well patient is scheduled to get a Holter monitor will continue that visit. Patient has no acute findings here in the ER and can be discharged home, no chest pain - Lab Data Result diagrams: 11/16/23 15:39 11/16/23 15:39 Lab Results 11/16/23 11/16/23 11/16/23 Range/Units 15:39 15:39 15:39 WBC 9.5 (3.8-10.6) k/uL RBC 6.79 H (4.30-5.90) m/uL Hgb 15.1 (13.0-17.5) gm/dL Hct 46.6 (39.0-53.0) % MCV 68.6 L (80.0-100.0) fL MCH 22.2 L (25.0-35.0) pg MCHC 32.4 (31.0-37.0) g/dL RDW 15.3 (11.5-15.5) % Plt Count 204 (150-450) k/uL MPV 7.1 Neutrophils % 57 % Lymphocytes % 20 % Monocytes % 7 % Eosinophils % 14 % Basophils % 1 % Neutrophils # 5.4 (1.3-7.7) k/uL Lymphocytes # 1.9 (1.0-4.8) k/uL Monocytes # 0.6 (0-1.0) k/uL Eosinophils # 1.3 H (0-0.7) k/uL Basophils # 0.1 (0-0.2) k/uL Microcytosis Marked Sodium 139 (137-145) mmol/L Potassium 4.5 (3.5-5.1) mmol/L Chloride 104 (98-107) mmol/L Carbon Dioxide 24 (22-30) mmol/L Anion Gap 11 mmol/L BUN 15 (9-20) mg/dL Creatinine 0.90 (0.66-1.25) mg/dL Est GFR (CKD-EPI)AfAm >90 (>60 ml/min/1.73 sqM) Est GFR (CKD-EPI)NonAf >90 (>60 ml/min/1.73 sqM) Glucose 128 H (74-99) mg/dL Calcium 9.2 (8.4-10.2) mg/dL Phosphorus 3.3 (2.5-4.5) mg/dL Magnesium 1.9 (1.6-2.3) mg/dL Total Bilirubin 1.5 H (0.2-1.3) mg/dL AST 58 (17-59) U/L ALT 88 H (4-49) U/L Alkaline Phosphatase 76 (38-126) U/L Troponin I <0.012 (0.000-0.034) ng/mL NT-Pro-B Natriuret Pep 21 pg/mL Total Protein 7.9 (6.3-8.2) g/dL Albumin 4.6 (3.5-5.0) g/dL TSH 1.160 (0.465-4.680) mIU/L - EKG Data -: EKG Interpreted by Me Disposition Clinical Impression: Palpitations Disposition: HOME SELF-CARE Condition: Undetermined Instructions (If sedation given, give patient instructions): Heart Palpitations (ED) Is patient prescribed a controlled substance at d/c from ED?: No Referrals: Jef Ocampo MD [Primary Care Provider] - 1-2 days Time of Disposition: 17:30
[2023-11-16 15:54] LABS: Basophils # (A) 0.1 k/uL (0-0.2); Basophils % (A) 1 %; Eosinophils # (A) 1.3 k/uL (0-0.7); Eosinophils % (A) 14 %; HCT 46.6 % (39.0-53.0); HGB 15.1 gm/dL (13.0-17.5); Lymphocytes # (A) 1.9 k/uL (1.0-4.8); Lymphocytes % (A) 20 %; MCH 22.2 pg (25.0-35.0); MCHC 32.4 g/dL (31.0-37.0); MCV 68.6 fL (80.0-100.0); Mean Platelet Volume 7.1; Microcytosis Marked; Monocytes # (A) 0.6 k/uL (0-1.0); Monocytes % (A) 7 %; Neutrophils # (A) 5.4 k/uL (1.3-7.7); Neutrophils % (A) 57 %; Platelet Count 204 k/uL (150-450); RBC 6.79 m/uL (4.30-5.90); RDW 15.3 % (11.5-15.5); WBC 9.5 k/uL (3.8-10.6)
[2023-11-16 16:07] VITALS: RESP 18
[2023-11-16 16:07] LABS: ALT 88 U/L (4-49); African American GFR (CKD) >90 (>60 ml/min/1.73 sqM); Albumin 4.6 g/dL (3.5-5.0); Anion Gap 11 mmol/L; Blood Urea Nitrogen 15 mg/dL (9-20); Calcium 9.2 mg/dL (8.4-10.2); Carbon Dioxide 24 mmol/L (22-30); Chloride 104 mmol/L (98-107); Glucose 128 mg/dL (74-99); Non-African American GFR(CKD) >90 (>60 ml/min/1.73 sqM); Phosphorus 3.3 mg/dL (2.5-4.5); Sodium 139 mmol/L (137-145); Total Bilirubin 1.5 mg/dL (0.2-1.3); Total Protein 7.9 g/dL (6.3-8.2)
[2023-11-16 16:09] LABS: Magnesium 1.9 mg/dL (1.6-2.3); Potassium 4.5 mmol/L (3.5-5.1)
[2023-11-16 16:10] LABS: AST 58 U/L (17-59); Alkaline Phosphatase 76 U/L (38-126)
[2023-11-16 16:13] LABS: NT-Pro-B-Type Natriuretic Pept 21 pg/mL
[2023-11-16 17:56] VITALS: BP 129/80; PULSE 82; TEMP 98.1
== END 2023-11-16 17:56 | disposition home or self-care (01) ==
LOC: EC 14:28
DX: R00.2 Palpitations (principal); J45.909 Unspecified asthma, uncomplicated; F41.9 Anxiety disorder, unspecified; Z79.899 Other long term (current) drug therapy; Z79.82 Long term (current) use of aspirin
CPT/HCPCS: 36415; 80053; 83735; 83880; 84100; 84443; 84484; 85025; 93005; 96360; 99285

== ENCOUNTER 2024-07-03 11:25 | Emergency (ER) | payer BC ==
[2024-07-03 12:01] VITALS: RESP 18
[2024-07-03 13:17] LABS: Appearance,Urine Clear (Clear); Bilirubin,Urine Negative (Negative); Blood,Urine Moderate (Negative); Color,Urine Yellow; Glucose,Urine (UA) Negative (Negative); Ketones,Urine Negative (Negative); Leukocyte Esterase,Urine Negative (Negative); Mucus,Urine Many /hpf; Nitrite,Urine Negative (Negative); PH, Urine 5.5 (5.0-8.0); Protein,Urine Trace (Negative); RBC,Urine 5 /hpf (0-5); Specific Gravity,Urine 1.021 (1.001-1.035); Urobilinogen,Urine <2.0 mg/dL (<2.0); WBC,Urine 2 /hpf (0-5)
[2024-07-03] MEDS: LIDOCAINE 4% PATCH TOPICAL ONE (15:08)
[2024-07-03] MEDS: KETOROLAC 15 MG/ML 1 ML VIAL IVP STA (15:20)
[2024-07-03 15:21] LABS: Basophils % (A) 0 %; Eosinophils # (A) 0.7 k/uL (0-0.7); Eosinophils % (A) 8 %; HCT 45.1 % (39.0-53.0); HGB 14.7 gm/dL (13.0-17.5); Lymphocytes # (A) 1.9 k/uL (1.0-4.8); Lymphocytes % (A) 19 %; MCH 22.2 pg (25.0-35.0); MCHC 32.7 g/dL (31.0-37.0); MCV 67.9 fL (80.0-100.0); Mean Platelet Volume 7.5; Microcytosis Marked; Monocytes # (A) 0.7 k/uL (0-1.0); Monocytes % (A) 7 %; Neutrophils # (A) 6.3 k/uL (1.3-7.7); Neutrophils % (A) 64 %; Platelet Count 215 k/uL (150-450); RBC 6.65 m/uL (4.30-5.90); RDW 15.3 % (11.5-15.5); WBC 9.8 k/uL (3.8-10.6)
[2024-07-03 15:40] LABS: ALT 75 U/L (4-49); AST 52 U/L (17-59); African American GFR (CKD) >90 (>60 ml/min/1.73 sqM); Albumin 4.5 g/dL (3.5-5.0); Alkaline Phosphatase 78 U/L (38-126); Anion Gap 6 mmol/L; Blood Urea Nitrogen 10 mg/dL (9-20); Calcium 9.5 mg/dL (8.4-10.2); Carbon Dioxide 30 mmol/L (22-30); Chloride 101 mmol/L (98-107); Glucose 108 mg/dL (74-99); Non-African American GFR(CKD) >90 (>60 ml/min/1.73 sqM); Potassium 4.2 mmol/L (3.5-5.1); Sodium 137 mmol/L (137-145); Total Bilirubin 2.2 mg/dL (0.2-1.3); Total Protein 7.5 g/dL (6.3-8.2)
--- NOTE | 2024-07-03 16:58 | XR ---
EXAMINATION TYPE: XR lumbar spine 2 or 3V DATE OF EXAM: 07/03/2024 4:47 PM CLINICAL INDICATION: Male, 59 years old with history of pain; COMPARISON: None TECHNIQUE: XR lumbar spine 2 or 3V - Frontal, lateral and coned in L5-S1 lateral views of the spine. FINDINGS: No evidence of any acute osseous pathology. No evidence of loss of vertebral body height i s seen. There is normal alignment of the lumbar vertebral bodies. Scattered disc space narrowing. Mul tilevel marginal osteophyte formation throughout the visualized spine. There is facet joint arthropat hy throughout the spine. Scattered at least mild neural foraminal stenosis. IMPRESSION: 1. No acute fracture. 2. Mild multilevel disc degeneration.
--- NOTE | 2024-07-03 18:11 | CT ---
EXAMINATION TYPE: CT abdomen pelvis wo con CT DLP: 1016.4 mGycm, Automated exposure control for dose reduction was used. DATE OF EXAM: 07/03/2024 5:55 PM COMPARISON: None CLINICAL INDICATION: Male, 59 years old with history of R flank pain; RIGHT FLANK PAIN TECHNIQUE: Axial CT abdomen pelvis wo con;Sagittal and coronal reformats were created on a separate workstation. Contrast used: mL of , (none if empty) Oral contrast used: without Oral Contrast (none if empty) FINDINGS: LOWER CHEST: Unremarkable ABDOMEN LIVER: Diffusely hypoattenuating parenchyma. GALLBLADDER AND BILE DUCTS: Unremarkable. PANCREAS: Unremarkable. SPLEEN: Unremarkable. ADRENAL GLANDS: Unremarkable. KIDNEYS AND URETERS: Nonobstructing 2 mm right renal calculus. Left probable cyst. No left renal calc addison. PELVIS BLADDER: Unremarkable REPRODUCTIVE: Unremarkable. ABDOMEN & PELVIS STOMACH AND BOWEL: No evidence of bowel obstruction. The appendix is normal. Scattered colonic divert icula. PERITONEUM/RETROPERITONEUM: No evidence of pneumoperitoneum or free fluid. VASCULATURE: No evidence of aortic aneurysm. MUSCULOSKELETAL: No acute osseous abnormalities LYMPH NODES: No gross evidence for lymphadenopathy. SOFT TISSUE/ABDOMINAL WALL: Bilateral fat-containing inguinal hernias. IMPRESSION: 1. No evidence for acute process. The appendix is normal. 2. There is a nonobstructing right 2 mm calculus. No evidence for lymphadenopathy. 3. Hepatic steatosis. 4. Colonic diverticulosis.
--- NOTE | 2024-07-03 18:19 | ED ---
General Adult HPI - General Chief complaint: Recheck/Abnormal Lab/Rx Stated complaint: Back pain Time Seen by Provider: 07/03/24 14:09 Source: patient Limitations: no limitations - History of Present Illness Initial comments: 59-year-old male presenting with chief complaint of back pain. Located on the right lower side. He states that it started after pulling weeds in his yard a bout a week ago. He was taking anti-inflammatories at home which seemed to help. Today he had some worsening pain. He also had a bowel movement with bright red blood. States that this only happened once today, streaks of blood. When he had another bowel movement there was no blood. He states that he did have some pain wrapping around the right side earlier today but that has since stopped. No fevers. No nausea or vomiting. No diarrhea. No loss of bowel or bladder control or saddle paresthesia. No dysuria or hematuria. No new injury or trauma. - Related Data Home Medications Medication Instructions Recorded Confirmed ALPRAZolam [Xanax] 0.125 - 0.25 mg PO Q8H PRN 11/13/19 06/16/22 Aspirin EC [Ecotrin Low Dose] 81 mg PO DAILY 11/13/19 06/16/22 L.acidoph,Paracasei, B.lactis 1 cap PO DAILY 11/13/19 06/16/22 [Probiotic] Dicyclomine [Bentyl] 20 mg PO TID PRN 06/16/22 06/16/22 Allergies Allergy/AdvReac Type Severity Reaction Status Date / Time No Known Allergies Allergy Verified 07/03/24 12:01 Review of Systems ROS Statement: Those systems with pertinent positive or pertinent negative responses have been documented in the HPI. ROS Other: All systems not noted in ROS Statement are negative. Past Medical History Past Medical History: Asthma, Chest Pain / Angina, GERD/Reflux Additional Past Medical History / Comment(s): Concussion age 19 yrs, possible past stomach ulcer History of Any Multi-Drug Resistant Organisms: None Reported Past Surgical History: Adenoidectomy, Cholecystectomy, Orthopedic Surgery, Tonsillectomy Additional Past Surgical History / Comment(s): 2017 Cardiac cath, EGD, colonoscopy, L knee arthroscopic legament repair, L knee arthroscopic meniscus r epair, surgery for deviated septum. Past Anesthesia/Blood Transfusion Reactions: No Reported Reaction, Motion Sickness Past Psychological History: Anxiety Smoking Status: Never smoker Past Alcohol Use History: Occasional Past Drug Use History: None Reported - Past Family History Father Family Medical History: Liver Disease Additional Family Medical History / Comment(s): Non alcoholic cirrhosis. Father is in hospice. Mother Family Medical History: Asthma Additional Family Medical History / Comment(s): Chronic bronchitis. Mother is living. Son(s) Family Medical History: Cancer Additional Family Medical History / Comment(s): osteosarcoma General Exam Limitations: no limitations General appearance: alert, in no apparent distress Head exam: Present: atraumatic, normocephalic, normal inspection Eye exam: Present: normal appearance, EOMI Neck exam: Present: normal inspection. Absent: meningismus Respiratory exam: Present: normal lung sounds bilaterally. Absent: respiratory distress, wheezes, rales, rhonchi, stridor Cardiovascular Exam: Present: regular rate, normal rhythm, normal heart sounds. Absent: systolic murmur, diastolic murmur, rubs, gallop, clicks GI/Abdominal exam: Present: soft. Absent: distended, tenderness, guarding, rebound, rigid Extremities exam: Present: normal inspection, full ROM. Absent: pedal edema Back exam: Present: normal inspection, paraspinal tenderness (Right-sided) Neurological exam: Present: alert, oriented X3 Psychiatric exam: Present: normal affect, normal mood Skin exam: Present: warm, dry Course Vital Signs 07/03/24 07/03/24 11:56 18:55 Temperature 98.1 F 98 F Pulse Rate 89 81 Respiratory 18 18 Rate Blood Pressure 157/96 145/79 O2 Sat by Pulse 98 98 Oximetry Medical Decision Making - Medical Decision Making Was pt. sent in by a medical professional or institution (, PA, TELEGRAPH OPERATOR, urgent care, hospital, or penitentiary...) When possible be specific @ -No Did you speak to anyone other than the patient for history (EMS, parent, family, police, friend...)? What history was obtained from this source @ -No Did you review nursing and triage notes (agree or disagree)? Why? @ -I reviewed and agree with nursing and triage notes Were old charts reviewed (outside hosp., previous admission, EMS record, old EKG, old radiological studies, urgent care reports/EKG's, penitentiary records)? Report findings @ -No old charts were reviewed Differential Diagnosis (chest pain, altered mental status, abdominal pain women, abdominal pain men, vaginal bleeding, weakness, fever, dyspnea, syncope, headache, dizziness, GI bleed, back pain, seizure, CVA, palpatations, mental health, musculoskeletal)? @ - [facility] Differential Back Pain: Strain, zoster, cauda equina syndrome, epidural abscess, vertebral osteomyelitis, discitis, fracture, subluxation, disc herniation, DJD, spinal stenosis, dissection, AAA, pancreatitis, peptic ulcer disease, pyelonephritis, kidney stone this is not meant to be an all-inclusive list. EKG interpreted by me (3pts min.). @ -As above X-rays interpreted by me (1pt min.). @ -X-ray shows no acute fracture. Mild multilevel disc degeneration CT interpreted by me (1pt min.). @ -CT shows no evidence for acute process. The appendix is normal. There is a nonobstructing right 2 mm calculus. No evidence for lymphadenopathy. Hepatic steatosis. Colonic diverticulosis. U/S interpreted by me (1pt. min.). @ -None done What testing was considered but not performed or refused? (CT, X-rays, U/S, labs)? Why? @ -None What meds were considered but not given or refused? Why? @ -None Did you discuss the management of the patient with other professionals (professionals i.e. , PA, TELEGRAPH OPERATOR, lab, RT, psych nurse, social service coordinator, string winding machine operator, t eacher, audit officer, piano case and bench assembler)? Give summary @ -No Was smoking cessation discussed for >3mins.? @ -No Was critical care preformed (if so, how long)? @ -No Were there social determinants of health that impacted care today? How? (Homelessness, low income, unemployed, alcoholism, drug addiction, transportation, low edu. Level, literacy, decrease access to med. care, half-way, rehab)? @ -No Was there de-escalation of care discussed even if they declined (Discuss DNR or withdrawal of care, Hospice)? DNR status @ -No What co-morbidities impacted this encounter? (DM, HTN, Smoking, COPD, CAD, Cancer, CVA, ARF, Chemo, Hep., AIDS, mental health diagnosis, sleep apnea, morbid obesity)? @ -None Was patient admitted / discharged? Hospital course, mention meds given and route, prescriptions, significant lab abnormalities, going to OR and other pertinent info. @ -59-year-old male presenting with chief complaint of back pain. He had a right-sided lower back strain about a week ago when pulling weeds in his yard. Thought it was getting better but today pain is worse. He also did have 1 bowel movement with streaks of bright red blood today. History and physical examination are conducted. There is some right-sided paraspinal muscle tenderness. No obvious blood seen on rectal exam. No leukocytosis or anemia. Urine showed moderate blood but only 5 red blood cells. Stool occult blood is negative. CT shows no obstructive uropathy or other acute process. Patient is educated on today's findings. He reports improvement in his symptoms after pain medication pain is likely musculoskeletal in nature. Instructed to follow-up with his PCP regarding blood in urine today. Discharged home. Follow-up with PCP. Report back to ER with any new or worsening symptoms. Discussed return parameters and answered all questions. Patient conveyed verbal understanding and agreed to the plan. I discussed this case in detail with my attending Dr. Walls. Undiagnosed new problem with uncertain prognosis? @ -No Drug Therapy requiring intensive monitoring for toxicity (Heparin, Nitro, Insulin, Cardizem)? @ -No Were any procedures done? @ -No Diagnosis/symptom? @ -Lumbar strain Acute, or Chronic, or Acute on Chronic? @ -Acute Uncomplicated (without systemic symptoms) or Complicated (systemic symptoms)? @ -Uncomplicated Side effects of treatment? @ -No Exacerbation, Progression, or Severe Exacerbation? @ -No Poses a threat to life or bodily function? How? (Chest pain, USA, MS, pneumonia, PE, COPD, DKA, ARF, appy, cholecystitis, CVA, Diverticulitis, Homicidal, Suicidal, threat to staff... and all critical care pts) @ -Low likelihood - Lab Data Result diagrams: 07/03/24 14:57 07/03/24 14:57 Lab Results 07/03/24 07/03/24 07/03/24 Range/Units 12:10 14:57 14:57 WBC 9.8 (3.8-10.6) k/uL RBC 6.65 H (4.30-5.90) m/uL Hgb 14.7 (13.0-17.5) gm/dL Hct 45.1 (39.0-53.0) % MCV 67.9 L (80.0-100.0) fL MCH 22.2 L (25.0-35.0) pg MCHC 32.7 (31.0-37.0) g/dL RDW 15.3 (11.5-15.5) % Plt Count 215 (150-450) k/uL MPV 7.5 Neutrophils % 64 % Lymphocytes % 19 % Monocytes % 7 % Eosinophils % 8 % Basophils % 0 % Neutrophils # 6.3 (1.3-7.7) k/uL Lymphocytes # 1.9 (1.0-4.8) k/uL Monocytes # 0.7 (0-1.0) k/uL Eosinophils # 0.7 (0-0.7) k/uL Basophils # 0.0 (0-0.2) k/uL Microcytosis Marked Sodium (137-145) mmol/L Potassium (3.5-5.1) mmol/L Chloride (98-107) mmol/L Carbon Dioxide (22-30) mmol/L Anion Gap mmol/L BUN (9-20) mg/dL Creatinine (0.66-1.25) mg/dL Est GFR (CKD-EPI)AfAm (>60 ml/min/1.73 sqM) Est GFR (CKD-EPI)NonAf (>60 ml/min/1.73 sqM) Glucose (74-99) mg/dL Calcium (8.4-10.2) mg/dL Total Bilirubin (0.2-1.3) mg/dL AST (17-59) U/L ALT (4-49) U/L Alkaline Phosphatase (38-126) U/L Total Protein (6.3-8.2) g/dL Albumin (3.5-5.0) g/dL Urine Color Yellow Urine Appearance Clear (Clear) Urine pH 5.5 (5.0-8.0) Ur Specific [place] 1.021 (1.001-1.035) Urine Protein Trace H (Negative) Urine Glucose (UA) Negative (Negative) Urine Ketones Negative (Negative) Urine Blood Moderate H (Negative) Urine Nitrite Negative (Negative) Urine Bilirubin Negative (Negative) Urine Urobilinogen <2.0 (<2.0) mg/dL Ur Leukocyte Esterase Negative (Negative) Urine RBC 5 (0-5) /hpf Urine WBC 2 (0-5) /hpf Urine Mucus Many H (None) /hpf Stool Occult Blood Negative (Negative) 07/03/24 Range/Units 14:57 WBC (3.8-10.6) k/uL RBC (4.30-5.90) m/uL Hgb (13.0-17.5) gm/dL Hct (39.0-53.0) % MCV (80.0-100.0) fL MCH (25.0-35.0) pg MCHC (31.0-37.0) g/dL RDW (11.5-15.5) % Plt Count (150-450) k/uL MPV Neutrophils % % Lymphocytes % % Monocytes % % Eosinophils % % Basophils % % Neutrophils # (1.3-7.7) k/uL Lymphocytes # (1.0-4.8) k/uL Monocytes # (0-1.0) k/uL Eosinophils # (0-0.7) k/uL Basophils # (0-0.2) k/uL Microcytosis Sodium 137 (137-145) mmol/L Potassium 4.2 (3.5-5.1) mmol/L Chloride 101 (98-107) mmol/L Carbon Dioxide 30 (22-30) mmol/L Anion Gap 6 mmol/L BUN 10 (9-20) mg/dL Creatinine 0.84 (0.66-1.25) mg/dL Est GFR (CKD-EPI)AfAm >90 (>60 ml/min/1.73 sqM) Est GFR (CKD-EPI)NonAf >90 (>60 ml/min/1.73 sqM) Glucose 108 H (74-99) mg/dL Calcium 9.5 (8.4-10.2) mg/dL Total Bilirubin 2.2 H (0.2-1.3) mg/dL AST 52 (17-59) U/L ALT 75 H (4-49) U/L Alkaline Phosphatase 78 (38-126) U/L Total Protein 7.5 (6.3-8.2) g/dL Albumin 4.5 (3.5-5.0) g/dL Urine Color Urine Appearance (Clear) Urine pH (5.0-8.0) Ur Specific [place] (1.001-1.035) Urine Protein (Negative) Urine Glucose (UA) (Negative) Urine Ketones (Negative) Urine Blood (Negative) Urine Nitrite (Negative) Urine Bilirubin (Negative) Urine Urobilinogen (<2.0) mg/dL Ur Leukocyte Esterase (Negative) Urine RBC (0-5) /hpf Urine WBC (0-5) /hpf Urine Mucus (None) /hpf Stool Occult Blood (Negative) Disposition Clinical Impression: Lumbar strain Disposition: HOME SELF-CARE Condition: Good Instructions (If sedation given, give patient instructions): Acute Low Back Pain (ED) Additional Instructions: Follow-up with PCP. Report back to ER with any new or worsening symptoms. Take Motrin and Tylenol as needed for pain control. May utilize [id number] lidocaine patches. You may take the muscle relaxers that your PCP prescribed you. Is patient prescribed a controlled substance at d/c from ED?: No Referrals: Jef Ocampo MD [Primary Care Provider] - 1-2 days Time of Disposition: 18:19
[2024-07-03 18:57] VITALS: BP 145/79; PULSE 81; TEMP 98
== END 2024-07-03 19:25 | disposition home or self-care (01) ==
LOC: EC 11:25
CPT/HCPCS: 36415; 72100; 74176; 80053; 81001; 82272; 85025; 96374; 99284

== ENCOUNTER 2025-03-30 14:49 | Emergency (ER) | payer BC ==
[2025-03-30 14:55] VITALS: RESP 18; TEMP 98.1
--- NOTE | 2025-03-30 15:08 | ED ---
SOB HPI - General Chief Complaint: Upper Respiratory Infection Stated Complaint: SOB, cough, left shoulder pain Time Seen by Provider: 03/30/25 15:02 Source: patient, RN notes reviewed, old records reviewed Mode of arrival: ambulatory Limitations: no limitations - History of Present Illness Initial Comments: This is a 59-year-old male today for evaluation of an episode of chest pain with diaphoresis and some shortness of breath also complaining of arms and hands feet numbness and tingling symptoms for a few days now. No weakness no loss of sensation history of cardiac evaluation including stress test and evaluation for plaque of the heart about 50%. Patient has no current chest pain just complaining of the paresthesias or numbness and tingling in the feet and hands MD Complaint: shortness of breath, chest pain (Bilateral upper and lower extremity paresthesias) -: days(s) Severity: moderate Severity scale (1-10): 5 Consistency: intermittent Improves With: nothing Worsens With: nothing Context: other (0) Associated Symptoms: chest pain - Related Data Home Medications Medication Instructions Recorded Confirmed ALPRAZolam [Xanax] 0.125 - 0.25 mg PO Q8H PRN 11/13/19 06/16/22 Aspirin EC [Ecotrin Low Dose] 81 mg PO DAILY 11/13/19 06/16/22 L.acidoph,Paracasei, B.lactis 1 cap PO DAILY 11/13/19 06/16/22 [Probiotic] Dicyclomine [Bentyl] 20 mg PO TID PRN 06/16/22 06/16/22 Allergies Allergy/AdvReac Type Severity Reaction Status Date / Time No Known Allergies Allergy Verified 03/30/25 14:55 Review of Systems ROS Statement: Those systems with pertinent positive or pertinent negative responses have been documented in the HPI. ROS Other: All systems not noted in ROS Statement are negative. Past Medical History Past Medical History: Asthma, Chest Pain / Angina, GERD/Reflux Additional Past Medical History / Comment(s): Concussion age 19 yrs, possible past stomach ulcer History of Any Multi-Drug Resistant Organisms: None Reported Past Surgical History: Adenoidectomy, Cholecystectomy, Orthopedic Surgery, Tonsillectomy Additional Past Surgical History / Comment(s): 2017 Cardiac cath, EGD, colonoscopy, L knee arthroscopic legament repair, L knee arthroscopic meniscus repair, surgery for deviated septum. Past Anesthesia/Blood Transfusion Reactions: No Reported Reaction, Motion Sickness Past Psychological History: Anxiety Smoking Status: Never smoker Past Alcohol Use History: Occasional Past Drug Use History: None Reported - Past Family History Father Family Medical History: Liver Disease Additional Family Medical History / Comment(s): Non alcoholic cirrhosis. Father is in hospice. Mother Family Medical History: Asthma Additional Family Medical History / Comment(s): Chronic bronchitis. Mother is living. Son(s) Family Medical History: Cancer Additional Family Medical History / Comment(s): osteosarcoma General Exam Limitations: no limitations General appearance: alert, in no apparent distress Head exam: Present: atraumatic, normocephalic, normal inspection Eye exam: Present: normal appearance, PERRL, EOMI. Absent: scleral icterus, conjunctival injection, periorbital swelling ENT exam: Present: normal exam, mucous membranes moist Neck exam: Present: normal inspection. Absent: tenderness, meningismus, lymphadenopathy Respiratory exam: Present: normal lung sounds bilaterally. Absent: respiratory distress, wheezes, rales, rhonchi, stridor Cardiovascular Exam: Present: regular rate, normal rhythm, normal heart sounds. Absent: systolic murmur, diastolic murmur, rubs, gallop, clicks GI/Abdominal exam: Present: soft, normal bowel sounds. Absent: distended, tenderness, guarding, rebound, rigid Extremities exam: Present: normal inspection, full ROM, normal capillary refill. Absent: tenderness, pedal edema, joint swelling, calf tenderness Back exam: Present: normal inspection Neurological exam: Present: alert, oriented X3, CN II-XII intact Psychiatric exam: Present: normal affect, normal mood Skin exam: Present: warm, dry, intact, normal color. Absent: rash Course Vital Signs 03/30/25 03/30/25 03/30/25 14:53 15:49 15:55 Temperature 98.1 F Pulse Rate 77 68 70 Respiratory 18 Rate Blood Pressure 147/87 O2 Sat by Pulse 98 Oximetry 03/30/25 16:42 Temperature Pulse Rate 69 Respiratory 18 Rate Blood Pressure 130/78 O2 Sat by Pulse 98 Oximetry - Reevaluation(s) Reevaluation #1: 03/30/25 20:25 Medical records reviewed Reevaluation #2: 03/30/25 20:25 No current chest pain with paresthesias persist 03/30/25 20:25 No focal neurological deficit Reevaluation #3: 03/30/25 20:25 Patient informed of results and questions answered Reevaluation #4: Was pt. sent in by a medical professional or institution (HEIDY Ruano, PATIENT FINANCIAL SERVICES MANAGER, urgent care, hospital, or prison...) When possible be specific @ -no Did you speak to anyone other than the patient for history (EMS, parent, family, police, friend...)? What history was obtained from this source @ -no Did you review nursing and triage notes (agree or disagree)? Why? @ -agree Are old charts reviewed (outside hosp., previous admission, EMS record, old EKG, old radiological studies, urgent care reports/EKG's, prison records)? Report findings @ -yes Differential Diagnosis (chest pain, altered mental status, abdominal pain women, abdominal pain men, vaginal bleeding, weakness, fever, dyspnea, syncope, headache, dizziness, GI bleed, back pain, seizure, CVA, palpatations, mental health, musculoskeletal)? @ -prior EKG interpreted by me (3pts min.). @ -yes X-rays interpreted by me (1pt min.). @ -yes negative for acute disease CT interpreted by me (1pt min.). @ -no U/S interpreted by me (1pt. min.). @ -no What testing was considered but not performed or refused? (CT, X-rays, U/S, labs)? Why? @ -none What meds were considered but not given or refused? Why? @ -none Did you discuss the management of the patient with other professionals (professionals i.e. HEIDY Ruano, PATIENT FINANCIAL SERVICES MANAGER, lab, RT, psych nurse, elementary school social worker, corporation lawyer, teacher, correction officer city or county jail, case technician)? Give summary @ -no Was smoking cessation discussed for >3mins.? @ -no Was critical care preformed (if so, how long)? @ -no Were there social determinants of health that impacted care today? How? (Homelessness, low income, unemployed, alcoholism, drug addiction, t ransportation, low edu. Level, literacy, decrease access to med. care, detention, rehab)? @ -none Was there de-escalation of care discussed even if they declined (Discuss DNR or withdrawal of care, Hospice)? DNR status @ -no What co-morbidities impacted this encounter? (DM, HTN, Smoking, COPD, CAD, Can cer, CVA, ARF, Chemo, Hep., AIDS, mental health diagnosis, sleep apnea, morbid obesity)? @ -none Was patient admitted / discharged? Hospital course, mention meds given and route, prescriptions, significant lab abnormalities, going to OR and other pertinent info. @ - 59 male to the ER for evaluation patient has no acute findings here in the ER no chest pain throughout ER stay EKG troponin negative arm and leg paresthesias persist patient will continue outpatient monitoring and follow-up as directed with semi truck driver Discharge Undiagnosed new problem with uncertain prognosis? @ -no Drug Therapy requiring intensive monitoring for toxicity (Heparin, Nitro, Insulin, Cardizem)? @ -no Were any procedures done? @ -no Diagnosis/symptom? @ -Chest pain Acute, or Chronic, or Acute on Chronic? @ -Acute Uncomplicated (without systemic symptoms) or Complicated (systemic symptoms)? @ -Complicated Side effects of treatment? @ -no Exacerbation, Progression, or Severe Exacerbation? @ -exacerbation Poses a threat to life or bodily function? How? (Chest pain, USA, CT, pneumonia, PE, COPD, DKA, ARF, appy, cholecystitis, CVA, Diverticulitis, Homicidal, Suicidal, threat to staff... and all critical care pts) @ -yes with acute chest pain Reevaluation #5: 03/30/25 20:25 Differential Chest Pain: Stable Angina, Unstable Angina, STEMI, NSTEMI Aortic Dissection, Pneumothorax, Musculoskeletal, Esophageal Spasm GERD, Cholecystitis, Pancreatitis, Zoster, this is not meant to be an all-inclusive list. Medical Decision Making - Medical Decision Making 59 male to the ER for evaluation patient has no acute findings here in the ER no chest pain throughout ER stay EKG troponin negative arm and leg paresthesias persist patient will continue outpatient monitoring and follow-up as directed with semi truck driver - Lab Data Result diagrams: 03/30/25 15:28 03/30/25 15:28 Lab Results 03/30/25 03/30/25 03/30/25 Range/Units 15:28 15:28 15:28 WBC 9.72 (4.50-10.00) 10*3/uL RBC 6.52 H (4.40-5.60) 10*6/uL Hgb 14.2 (13.0-17.0) g/dL Hct 43.9 (39.6-50.0) % MCV 67.3 L (80.0-97.0) fL MCH 21.8 L (27.0-32.0) pg MCHC 32.3 (32.0-37.0) g/dL Plt Count 229 (140-440) 10*3/uL MPV 10.1 (9.5-12.2) fL Immature Gran % (Auto) 0.3 % Neutrophils % 49.8 % Lymphocytes % 24.4 % Monocytes % 9.3 % Eosinophils % 15.5 % Basophils % 0.7 % Immature Gran # 0.03 (0.00-0.04) 10*3/uL Neutrophils # 4.84 (1.80-7.70) 10*3/uL Lymphocytes # 2.37 (0.90-5.00) 10*3/uL Monocytes # 0.90 (0.20-1.00) 10*3/uL Eosinophils # 1.51 H (0.04-0.35) 10*3/uL Basophils # 0.07 (0.00-0.10) 10*3/uL PT 11.1 (10.0-12.5) sec INR 1.0 (<1.2) APTT 26.0 (22.0-30.0) sec D-Dimer 0.22 (<0.60) mg/L FEU Sodium 138 (137-145) mmol/L Potassium 4.1 (3.5-5.1) mmol/L Chloride 99 (98-107) mmol/L Carbon Dioxide 27 (22-30) mmol/L Anion Gap 12 mmol/L BUN 14 (9-20) mg/dL Creatinine 0.79 (0.66-1.25) mg/dL Est GFR (CKD-EPI)AfAm >90 (>60 ml/min/1.73 sqM) Est GFR (CKD-EPI)NonAf >90 (>60 ml/min/1.73 sqM) Glucose 136 H (74-99) mg/dL Calcium 9.5 (8.4-10.2) mg/dL Magnesium 2.0 (1.6-2.3) mg/dL Total Bilirubin 1.2 (0.2-1.3) mg/dL AST 60 H (17-59) U/L ALT 87 H (4-49) U/L Alkaline Phosphatase 72 (38-126) U/L Troponin I (0.000-0.034) ng/mL NT-Pro-B Natriuret Pep 29 pg/mL Total Protein 7.5 (6.3-8.2) g/dL Albumin 4.6 (3.5-5.0) g/dL 03/30/25 Range/Units 15:28 WBC (4.50-10.00) 10*3/uL RBC (4.40-5.60) 10*6/uL Hgb (13.0-17.0) g/dL Hct (39.6-50.0) % MCV (80.0-97.0) fL MCH (27.0-32.0) pg MCHC (32.0-37.0) g/dL Plt Count (140-440) 10*3/uL MPV (9.5-12.2) fL Immature Gran % (Auto) % Neutrophils % % Lymphocytes % % Monocytes % % Eosinophils % % Basophils % % Immature Gran # (0.00-0.04) 10*3/uL Neutrophils # (1.80-7.70) 10*3/uL Lymphocytes # (0.90-5.00) 10*3/uL Monocytes # (0.20-1.00) 10*3/uL Eosinophils # (0.04-0.35) 10*3/uL Basophils # (0.00-0.10) 10*3/uL PT (10.0-12.5) sec INR (<1.2) APTT (22.0-30.0) sec D-Dimer (<0.60) mg/L FEU Sodium (137-145) mmol/L Potassium (3.5-5.1) mmol/L Chloride (98-107) mmol/L Carbon Dioxide (22-30) mmol/L Anion Gap mmol/L BUN (9-20) mg/dL Creatinine (0.66-1.25) mg/dL Est GFR (CKD-EPI)AfAm (>60 ml/min/1.73 sqM) Est GFR (CKD-EPI)NonAf (>60 ml/min/1.73 sqM) Glucose (74-99) mg/dL Calcium (8.4-10.2) mg/dL Magnesium (1.6-2.3) mg/dL Total Bilirubin (0.2-1.3) mg/dL AST (17-59) U/L ALT (4-49) U/L Alkaline Phosphatase (38-126) U/L Troponin I <0.012 (0.000-0.034) ng/mL NT-Pro-B Natriuret Pep pg/mL Total Protein (6.3-8.2) g/dL Albumin (3.5-5.0) g/dL - EKG Data -: EKG Interpreted by Me (EKG sinus 68 AK 177 QRS 92 QTc 396) - Radiology Data Radiology results: report reviewed (Chest x-ray is negative for acute disease), image reviewed Disposition Clinical Impression: Paresthesia and pain of both upper extremities, Paresthesia of both feet, Chest pain Disposition: HOME SELF-CARE Condition: Good Instructions (If sedation given, give patient instructions): Paresthesia (ED) Is patient prescribed a controlled substance at d/c from ED?: No Referrals: Jef Ocampo MD [Primary Care Provider] - 1-2 days Scott Long MD [STAFF PHYSICIAN] - 1-2 days Time of Disposition: 17:20
[2025-03-30 15:37] LABS: Basophils # (A) 0.07 10*3/uL (0.00-0.10); Basophils % (A) 0.7 %; Eosinophils # (A) 1.51 10*3/uL (0.04-0.35); Eosinophils % (A) 15.5 %; HCT 43.9 % (39.6-50.0); HGB 14.2 g/dL (13.0-17.0); Lymphocytes # (A) 2.37 10*3/uL (0.90-5.00); Lymphocytes % (A) 24.4 %; MCH 21.8 pg (27.0-32.0); MCHC 32.3 g/dL (32.0-37.0); MCV 67.3 fL (80.0-97.0); Mean Platelet Volume 10.1 fL (9.5-12.2); Monocytes % (A) 9.3 %; Neutrophils # (A) 4.84 10*3/uL (1.80-7.70); Neutrophils % (A) 49.8 %; Platelet Count 229 10*3/uL (140-440); RBC 6.52 10*6/uL (4.40-5.60); RDW 17.1 % (11.5-14.5); WBC 9.72 10*3/uL (4.50-10.00)
[2025-03-30] MEDS: SODIUM CHLORIDE 0.9% 1,000 ML IV ONE (15:42)
[2025-03-30] MEDS: KETOROLAC 15 MG/ML 1 ML VIAL IVP STA (15:44)
[2025-03-30] MEDS: IPRATROPIUM-ALBUTEROL 3 ML NEB INHALATION STA (15:47)
[2025-03-30 15:52] LABS: Prothrombin Time 11.1 sec (10.0-12.5)
[2025-03-30 15:55] LABS: ALT 87 U/L (4-49); AST 60 U/L (17-59); African American GFR (CKD) >90 (>60 ml/min/1.73 sqM); Albumin 4.6 g/dL (3.5-5.0); Alkaline Phosphatase 72 U/L (38-126); Anion Gap 12 mmol/L; Blood Urea Nitrogen 14 mg/dL (9-20); Calcium 9.5 mg/dL (8.4-10.2); Carbon Dioxide 27 mmol/L (22-30); Chloride 99 mmol/L (98-107); Glucose 136 mg/dL (74-99); Non-African American GFR(CKD) >90 (>60 ml/min/1.73 sqM); Potassium 4.1 mmol/L (3.5-5.1); Sodium 138 mmol/L (137-145); Total Bilirubin 1.2 mg/dL (0.2-1.3); Total Protein 7.5 g/dL (6.3-8.2)
[2025-03-30 16:04] LABS: NT-Pro-B-Type Natriuretic Pept 29 pg/mL
--- NOTE | 2025-03-30 16:29 | XR ---
EXAMINATION TYPE: XR chest 2V DATE OF EXAM: 03/30/2025 3:37 PM COMPARISON: 06/16/2022 CLINICAL INDICATION: Male, 59 years old with history of difficulty breathing, TECHNIQUE: XR chest 2V view(s) obtained. FINDINGS: The heart size is normal. The pulmonary vasculature is normal. The lungs are clear. IMPRESSION: 1. No acute pulmonary process. [facility], , 03/30/2025 4:26 PM
[2025-03-30 16:43] VITALS: BP 130/78; PULSE 69
== END 2025-03-30 17:27 | disposition home or self-care (01) ==
LOC: EC 14:49
DX: R07.9 Chest pain, unspecified (principal); R20.2 Paresthesia of skin
CPT/HCPCS: 36415; 94640; 93005; 85379; 83880; 80053; 83735; 84484; 85025; 85610; 85730; 71046; 99285; 96374; 96361; J1885